=== PATIENT | male | born 1970 | race Caucasian/White ===

== ENCOUNTER 2016-11-10 08:18 | Outpatient (CLI) | payer OTHER | END 2016-11-10 08:19 | disposition home or self-care (01) | DX: E11.8 Type 2 diabetes mellitus with unspecified complications (principal) ==

== ENCOUNTER 2016-12-08 10:11 | Outpatient (CLI) | payer OTHER | END 2016-12-08 10:12 | disposition home or self-care (01) | DX: Z79.01 Long term (current) use of anticoagulants (principal) ==

== ENCOUNTER 2016-12-21 16:09 | Outpatient (CLI) | payer OTHER | END 2016-12-21 16:10 | disposition home or self-care (01) | DX: Z79.01 Long term (current) use of anticoagulants (principal) ==

== ENCOUNTER 2017-01-05 13:41 | Outpatient (CLI) | payer OTHER | END 2017-01-05 13:42 | disposition home or self-care (01) | DX: Z79.01 Long term (current) use of anticoagulants (principal) ==

== ENCOUNTER 2017-01-10 07:54 | Outpatient (CLI) | payer OTHER | END 2017-01-10 07:55 | disposition home or self-care (01) | DX: E11.9 Type 2 diabetes mellitus without complications (principal); I10 Essential (primary) hypertension; E78.1 Pure hyperglyceridemia ==

== ENCOUNTER 2017-01-26 13:45 | Outpatient (CLI) | payer OTHER | END 2017-01-26 13:46 | disposition home or self-care (01) | DX: Z79.01 Long term (current) use of anticoagulants (principal) ==

== ENCOUNTER 2017-02-09 13:34 | Outpatient (CLI) | payer OTHER | END 2017-02-09 13:35 | disposition home or self-care (01) | LOC: LAB.F 13:34 | PROVIDERS: ATTEND Family Medicine | DX: Z79.01 Long term (current) use of anticoagulants (principal) | CPT/HCPCS: 85610 ==

== ENCOUNTER 2017-02-16 09:22 | Outpatient (CLI) | payer OTHER | END 2017-02-16 09:23 | disposition home or self-care (01) | DX: Z79.01 Long term (current) use of anticoagulants (principal) ==

== ENCOUNTER 2017-03-16 09:43 | Outpatient (CLI) | payer OTHER | END 2017-03-16 09:44 | disposition home or self-care (01) | LOC: LAB 09:43 | PROVIDERS: ATTEND Family Medicine | DX: Z79.01 Long term (current) use of anticoagulants (principal) | CPT/HCPCS: 85610 ==

== ENCOUNTER 2017-03-25 19:29 | Emergency (ER) | payer OTHER ==
--- NOTE | 2017-03-25 20:24 | ED Physician Documentation ---
PD HPI DYSPNEA - Stated complaint Stated Complaint: SOA - Chief complaint Chief Complaint: Resp - History obtained from History obtained from: Patient - History of Present Illness Timing - onset: How many days ago (few) Timing - details: Gradual onset Worsened by: Coughing Associated symptoms: Cough. No: Chest pain / discomfort Recently seen: Clinic (5 days ago.) - Additional information Additional information: The patient is a 36-year-old male with history of prosthetic aortic valve replacement, on warfarin, who presents with mild dyspnea, which he describes as not really short of breath, but "hard to take a deep breath." He reports cough with scant sputum production. 5 days ago he was diagnosed with sinus infection and was prescribed cefuroxime. His sinus congestion has improved since that time. He has been taking a decongestant medication. He denies fever, headache, sore throat, or chest pain. He has noticed an abnormal heart rhythm, which he has experienced occasionally in the past. Review of Systems Constitutional: denies: Fever Ears: denies: Tinnitus/ringing Nose: denies: Congestion Throat: denies: Sore throat Cardiac: reports: Palpitations. denies: Chest pain / pressure Respiratory: reports: Cough GI: denies: Abdominal Pain, Nausea, Vomiting : denies: Dysuria Skin: denies: Rash Musculoskeletal: denies: Back pain, Extremity pain Neurologic: denies: Focal weakness, Numbness, Headache PD PAST MEDICAL HISTORY - Past Medical History Past Medical History: Yes Cardiovascular: Arrhythmia, Valve disorder Respiratory: Pneumonia Neuro: None Endocrine/Autoimmune: Type 2 diabetes GI: None : Kidney stones HEENT: None Psych: None Musculoskeletal: None Derm: None Other Past Medical History: possible mrsa - Past Surgical History Past Surgical History: Yes General: Cholecystectomy Cardiovascular: Valve replacement, Other - Present Medications Home Medications: Ambulatory Orders Medication Instructions Recorded Confirmed Aspirin [Aspir 81] 81 mg PO DAILY 09/06/14 03/25/17 Lisinopril 5 mg PO DAILY 09/06/14 03/25/17 Metoprolol Tartrate 12.5 mg PO BID 09/06/14 03/25/17 Warfarin Sodium [Coumadin] 7.5 mg PO DAILY 09/06/14 03/25/17 Warfarin Sodium [Coumadin] 10 mg PO DAILY 09/06/14 03/25/17 Cefuroxime Axetil [Ceftin] 250 mg BID 03/25/17 03/25/17 Loratadine/Pseudoephedrine 1 tab BID 03/25/17 03/25/17 [Claritin-D 12 Hour Tablet] Metformin HCl 1,000 mg PO BID 03/25/17 03/25/17 - Allergies Allergies/Adverse Reactions: Allergies Allergy/AdvReac Type Severity Reaction Status Date / Time morphine Allergy Unknown Verified 09/06/14 15:46 - Social History Does the pt smoke?: No Smoking Status: Never smoker Does the pt drink ETOH?: No Does the pt have substance abuse?: No - Immunizations Immunizations are current?: Yes - POLST Patient has POLST: No PD ED PE NORMAL - Vitals Vital signs reviewed: Yes (hypertensive) - General General: Alert and oriented X 3 - HEENT HEENT: Atraumatic, Ears normal, Pharynx benign - Neck Neck: No adenopathy, No JVD - Cardiac Cardiac: Other (Bigeminy on the classroom monitor. Mechanical click on auscultation of the heart.) - Respiratory Respiratory: No respiratory distress, Clear bilaterally - Abdomen Abdomen: Soft, Non tender - Derm Derm: No rash - Extremities Extremities: No edema, No calf tenderness / cord - Neuro Neuro: Alert and oriented X 3, No motor deficit, Normal speech Results - Vitals Vitals: Oxygen O2 Source Room air - EKG (time done) 19:46 Rate: Rate (enter#) (94) Rhythm: NSR (with bigeminy) [place]: Normal Intervals: Normal [place] QRS: LVH Ischemia: Normal ST segments Other comments: Other comments (RSR' in V2, consistent with RVH.) - Labs Labs: Laboratory Tests 03/25/17 03/25/17 03/25/17 19:50 19:50 19:50 WBC 7.5 RBC 5.36 Hgb 14.5 Hct 44.7 MCV 83.3 MCH 27.1 MCHC 32.5 RDW 14.8 Plt Count 242 MPV 7.8 Neut # 3.9 Lymph # 2.7 [place] # 0.5 Eos # 0.4 Baso # 0.1 Absolute Nucleated RBC 0.01 Nucleated RBCs 0.1 PT 22.2 H INR 2.0 H Sodium 137 Potassium 3.5 Chloride 102 Carbon Dioxide 27 Anion Gap 8.0 BUN 20 Creatinine 1.0 Estimated GFR (MDRD) 80 L Glucose 92 Calcium 9.5 Total Bilirubin 0.2 AST 19 ALT 18 Alkaline Phosphatase 59 Total Protein 7.9 Albumin 4.4 Globulin 3.5 Albumin/Globulin Ratio 1.3 Lipase 18 L - Rads (name of study) 2-view chest x-ray Radiology: Prelim report reviewed, EMP read contemporaneously, See rad report ( No acute cardiopulmonary abnormality.) PD MEDICAL DECISION MAKING - ED course Complexity details: reviewed old records, reviewed results, re-evaluated patient , considered differential, d/w patient, d/w family, d/w medical consultant ED course: The patient presents with palpitations, and his classroom monitor reveals bigeminy. For the past 5 days he has been taking cefuroxime for sinus infection , and has also been taking a decongestant. He is status post aortic valve replacement and has had dysrhythmias in the past for which he is treated with metoprolol and lisinopril. I suspect the decongestant has prompted or at least been a contributing factor to his current bigeminy. He is not experiencing chest pain or hypotension. His CBC and chemistry panel are normal, and his INR is in the therapeutic range at 2.0. I discussed his condition with the branch associate teller on-call for Dr. Mendoza, his branch associate teller. He agrees that no further treatment, including no change in his beta omer, should be instituted at this time. I discussed with the patient and his the likely relationship between the decongestant and his current rhythm disturbance, the advice of the branch associate teller, as well as potentially worrisome signs or symptoms that should prompt reevaluation in the emergency department. Departure - Departure Disposition: 01 Home, Self Care Clinical Impression: Bigeminy, H/O aortic valve replacement Upper respiratory tract infection Qualifiers: URI type: unspecified viral URI Qualified Code(s): J06.9 - Acute upper respiratory infection, unspecified Condition: Stable Instructions: ED URI Viral, ED Dysrhythmia Unspecified Follow-Up: Erasmo Mittal MD [Provider Admit Priv/Credential] - Comments: Continue metoprolol as previously prescribed. Discontinue decongestant. Follow up with your primary physician within one to 2 weeks. Call to schedule an appointment. Return to the emergency department if you develop increasing difficulty breathing, worsening cardiac dysrhythmia, or otherwise worsening symptoms. Discharge Date/Time: 03/25/17 21:35
[2017-03-25 20:33] LABS: BASOPHILS # (AUTO) 0.1 10^3/uL (0.0-0.1); BASOPHILS % (AUTO) 0.7 %; EOSINOPHILS # (AUTO) 0.4 10^3/uL (0.0-0.7); EOSINOPHILS % (AUTO) 5.7 %; HCT - HEMATOCRIT 44.7 % (42.0-52.0); HGB - HEMOGLOBIN 14.5 g/dL (14.0-18.0); LYMPHOCYTES # (AUTO) 2.7 10^3/uL (1.5-3.5); LYMPHOCYTES % (AUTO) 36.2 %; MEAN CORPUSCULAR HEMOGLOBIN 27.1 pg (27.0-31.0); MEAN CORPUSCULAR HGB CONC 32.5 g/dL (32.0-36.0); MEAN CORPUSCULAR VOLUME 83.3 fL (80.0-94.0); MEAN PLATELET VOLUME 7.8 fL (7.4-11.4); MONOCYTES # (AUTO) 0.5 10^3/uL (0.0-1.0); MONOCYTES % (AUTO) 6.2 %; NEUTROPHILS # (AUTO) 3.9 10^3/uL (1.5-6.6); NEUTROPHILS % (AUTO) 51.2 %; NUCLEATED RED BLOOD CELLS AUTO 0.1 /100WBC; RED BLOOD COUNT 5.36 10^6/uL (4.70-6.10); RED CELL DISTRIBUTION WIDTH 14.8 % (12.0-15.0); UNCORRECTED WHITE BLOOD COUNT 7.5 x10^3/uL; WHITE BLOOD COUNT 7.5 x10^3/uL (4.8-10.8)
[2017-03-25 20:39] LABS: PT - PROTHROMBIN TIME 22.2 secs (9.9-12.6)
[2017-03-25 20:43] LABS: ALBUMIN/GLOBULIN RATIO 1.3 (1.0-2.2); BILIRUBIN,TOTAL 0.2 mg/dL (0.2-1.0); CALCIUM 9.5 mg/dL (8.5-10.3); POTASSIUM 3.5 mmol/L (3.5-5.0); TOTAL PROTEIN 7.9 g/dL (6.7-8.2)
--- NOTE | 2017-03-25 20:46 | XRAY Preliminary Report ---
Exam: XR Chest 2 View PA/LAT IMPRESSION: No acute cardiopulmonary abnormality. [facility] SITE ID: [id number]
--- NOTE | 2017-03-25 20:49 | XRAY Report ---
EXAM: CHEST RADIOGRAPHY EXAM DATE: 03/25/2017 08:40 PM. CLINICAL HISTORY: Cough, with dyspnea. COMPARISON: 09/24/2012. TECHNIQUE: 2 views. FINDINGS: Lungs/Pleura: Normal volumes. No focal consolidation or evidence of edema. No pleural effusion or pne umothorax. Mediastinum: Postoperative changes of interval cardiac valve surgery. Heart size is normal. The aorta is mildly tortuous, as before. Other: Mid thoracic spine DISH. IMPRESSION: No acute cardiopulmonary abnormality. [facility] Referring Provider Line: [phone] SITE ID: [id number]
[2017-03-25 21:48] VITALS: BP 155/96
== END 2017-03-25 21:35 | disposition home or self-care (01) ==
LOC: ED 19:29
DX: J06.9 Acute upper respiratory infection, unspecified (principal); R00.8 Other abnormalities of heart beat; E11.9 Type 2 diabetes mellitus without complications; Z95.2 Presence of prosthetic heart valve; Z79.01 Long term (current) use of anticoagulants; Z79.82 Long term (current) use of aspirin
CPT/HCPCS: 36415; 71020; 80053; 83690; 85025; 85610; 93005; 99284; 99285

== ENCOUNTER 2017-04-11 07:43 | Outpatient (CLI) | payer OTHER ==
[2017-04-11 12:05] LABS: CREATININE 0.9 mg/dL (0.6-1.2); POTASSIUM 3.9 mmol/L (3.5-5.0)
[2017-04-11 12:30] LABS: HEMOGLOBIN A1C 0.58 g/dL
== END 2017-04-11 07:44 | disposition home or self-care (01) ==
LOC: LAB.F 07:43
PROVIDERS: ATTEND Nurse Practitioner Family
DX: E11.9 Type 2 diabetes mellitus without complications (principal)
CPT/HCPCS: 36415; 80048; 83036

== ENCOUNTER 2017-04-13 09:31 | Outpatient (CLI) | payer OTHER | END 2017-04-13 09:32 | disposition home or self-care (01) | LOC: LAB.F 09:31 | PROVIDERS: ATTEND Internal Medicine | DX: Z79.01 Long term (current) use of anticoagulants (principal) | CPT/HCPCS: 85610 ==

== ENCOUNTER 2017-05-25 14:49 | Outpatient (CLI) | payer OTHER | END 2017-05-25 14:50 | disposition home or self-care (01) | LOC: LAB.F 14:49 | PROVIDERS: ATTEND Internal Medicine | DX: Z79.01 Long term (current) use of anticoagulants (principal) | CPT/HCPCS: 85610 ==

== ENCOUNTER 2017-06-08 10:28 | Outpatient (CLI) | payer OTHER | END 2017-06-08 10:29 | disposition home or self-care (01) | LOC: LAB.F 10:28 | PROVIDERS: ATTEND Internal Medicine | DX: Z79.01 Long term (current) use of anticoagulants (principal) | CPT/HCPCS: 85610 ==

== ENCOUNTER 2017-07-05 10:52 | Outpatient (CLI) | payer OTHER | END 2017-07-05 10:53 | disposition home or self-care (01) | LOC: LAB.F 10:52 | PROVIDERS: ATTEND Internal Medicine | DX: Z79.01 Long term (current) use of anticoagulants (principal); Z51.81 Encounter for therapeutic drug level monitoring | CPT/HCPCS: 36415; 82607; 85610 ==

== ENCOUNTER 2017-08-10 13:40 | Outpatient (CLI) | payer OTHER | END 2017-08-10 13:41 | disposition home or self-care (01) | LOC: LAB.F 13:40 | PROVIDERS: ATTEND Physician Assistant Medical | DX: Z79.01 Long term (current) use of anticoagulants (principal) | CPT/HCPCS: 85610 ==

== ENCOUNTER → 2017-08-22 | Outpatient (CLI) | payer OTHER | LOC: LAB.F 08:00 | PROVIDERS: ATTEND Physician Assistant Medical | DX: Z79.01 Long term (current) use of anticoagulants (principal) | CPT/HCPCS: 85610 ==

== ENCOUNTER 2017-09-07 08:00 | Outpatient (CLI) | payer OTHER | END 2017-09-07 08:01 | disposition home or self-care (01) | LOC: LAB.F 08:00 | PROVIDERS: ATTEND Physician Assistant Medical | DX: Z79.01 Long term (current) use of anticoagulants (principal) | CPT/HCPCS: 85610 ==

== ENCOUNTER 2017-10-05 10:52 | Outpatient (CLI) | payer OTHER | END 2017-10-05 10:53 | disposition home or self-care (01) | LOC: LAB.F 10:52 | PROVIDERS: ATTEND Physician Assistant Medical | DX: Z79.01 Long term (current) use of anticoagulants (principal) | CPT/HCPCS: 85610 ==

== ENCOUNTER 2017-10-26 13:21 | Outpatient (CLI) | payer OTHER | END 2017-10-26 13:22 | disposition home or self-care (01) | LOC: LAB.F 13:21 | PROVIDERS: ATTEND Physician Assistant Medical | DX: Z79.01 Long term (current) use of anticoagulants (principal) | CPT/HCPCS: 85610 ==

== ENCOUNTER 2017-11-23 08:00 | Outpatient (CLI) | payer OTHER ==
[2017-11-23 17:50] LABS: BASOPHILS # (AUTO) 0.1 10^3/uL (0.0-0.1); BASOPHILS % (AUTO) 0.9 %; EOSINOPHILS # (AUTO) 0.3 10^3/uL (0.0-0.7); EOSINOPHILS % (AUTO) 3.6 %; HGB - HEMOGLOBIN 14.8 g/dL (14.0-18.0); LYMPHOCYTES # (AUTO) 0.9 10^3/uL (1.5-3.5); MEAN CORPUSCULAR HEMOGLOBIN 28.1 pg (27.0-31.0); MEAN CORPUSCULAR HGB CONC 33.3 g/dL (32.0-36.0); MEAN CORPUSCULAR VOLUME 84.2 fL (80.0-94.0); MEAN PLATELET VOLUME 8.2 fL (7.4-11.4); MONOCYTES # (AUTO) 0.4 10^3/uL (0.0-1.0); MONOCYTES % (AUTO) 5.3 %; NEUTROPHILS # (AUTO) 5.3 10^3/uL (1.5-6.6); NEUTROPHILS % (AUTO) 77.2 %; PLT - PLATELET COUNT 212 10^3/uL (130-450); RED BLOOD COUNT 5.27 10^6/uL (4.70-6.10); RED CELL DISTRIBUTION WIDTH 15.8 % (12.0-15.0); WHITE BLOOD COUNT 6.9 x10^3/uL (4.8-10.8)
[2017-11-23 18:08] LABS: ALBUMIN 4.4 g/dL (3.2-5.5); ALBUMIN/GLOBULIN RATIO 1.2 (1.0-2.2); ALKALINE PHOSPHATASE 49 IU/L (42-121); ALT ALANINE AMINOTRANSFERASE 15 IU/L (10-60); AST ASPARTATE AMINOTRANSFERASE 20 IU/L (10-42); BILIRUBIN,TOTAL 1.2 mg/dL (0.2-1.0); BUN - BLOOD UREA NITROGEN 20 mg/dL (6-20); CALCIUM 9.1 mg/dL (8.5-10.3); CARBON DIOXIDE - CO2 25 mmol/L (21-32); CHLORIDE 104 mmol/L (101-111); CHOL/HDL RATIO 6.3 (<5.0); CHOLESTEROL 208 mg/dL; CREATININE 0.9 mg/dL (0.6-1.2); CREATININE,URINE 91.3 mg/dL; GFR - MDRD 90 (>89); GLUCOSE 84 mg/dL (70-100); HDL CHOLESTEROL 33 mg/dL; LDL CHOLESTEROL,CALCULATED 154 mg/dL; LDL/HDL RATIO 4.7 (<3.6); MICROALBUM/CREATININE RATIO,UR 157.7 ug/mg (<30.0); MICROALBUMIN,URINE 14.4 mg/dL (0-300.0); SODIUM 138 mmol/L (135-145); VLDL CHOLESTEROL 21 mg/dL
[2017-11-23 18:09] LABS: HB2 TOTAL 16.2 g/dL; HEMOGLOBIN A1C 0.56 g/dL; HEMOGLOBIN A1C % 5.3 % (4.6-6.2)
== END 2017-11-23 08:01 | disposition home or self-care (01) ==
LOC: LAB 08:00
PROVIDERS: ATTEND Family Medicine
DX: I10 Essential (primary) hypertension (principal); E78.1 Pure hyperglyceridemia; E11.9 Type 2 diabetes mellitus without complications
CPT/HCPCS: 36415; 80053; 80061; 82043; 82570; 83036; 83721; 84443; 85025

== ENCOUNTER 2017-12-14 10:32 | Outpatient (CLI) | payer OTHER | END 2017-12-14 10:33 | disposition home or self-care (01) | LOC: LAB.F 10:32 | PROVIDERS: ATTEND Physician Assistant Medical | DX: Z79.01 Long term (current) use of anticoagulants (principal) | CPT/HCPCS: 85610 ==

== ENCOUNTER 2018-01-18 08:22 | Outpatient (CLI) | payer OTHER | END 2018-01-18 08:23 | disposition home or self-care (01) | LOC: LAB.F 08:22 | PROVIDERS: ATTEND Physician Assistant Medical | DX: Z79.01 Long term (current) use of anticoagulants (principal) | CPT/HCPCS: 85610 ==

== ENCOUNTER 2018-01-25 09:25 | Outpatient (CLI) | payer OTHER | END 2018-01-25 09:26 | disposition home or self-care (01) | LOC: LAB.F 09:25 | PROVIDERS: ATTEND Physician Assistant Medical | DX: Z79.01 Long term (current) use of anticoagulants (principal) | CPT/HCPCS: 85610 ==

== ENCOUNTER 2018-02-20 02:40 | Emergency (ER) | payer OTHER ==
--- NOTE | 2018-02-20 03:03 | ED Physician Documentation ---
PD HPI DYSPNEA - Stated complaint Stated Complaint: RT LUNG PAIN - Chief complaint Chief Complaint: Abd Pain - History obtained from History obtained from: Patient - History of Present Illness Timing - onset: Today Timing - onset during: Sleep Timing - details: Abrupt onset, Now resolved Worsened by: Laying flat, Coughing Associated symptoms: No: Fever, Cough Similar symptoms before: No diagnosis Recently seen: Not recently seen - Additional information Additional information: Patient is a 47 year old male presenting to the emergency department for possible aspiration. patient states that he has had about 9-10 episodes of this throughout his life. patient states that he feels like some food went down his right side. patient states that he was wheezing but it has improved. Review of Systems Ten Systems: 10 systems reviewed and negative Respiratory: reports: Cough, Wheezing PD PAST MEDICAL HISTORY - Past Medical History Past Medical History: Yes Cardiovascular: Arrhythmia, Valve disorder Respiratory: Pneumonia Endocrine/Autoimmune: Type 2 diabetes GI: None : Kidney stones HEENT: None Psych: None Musculoskeletal: None Derm: None - Past Surgical History Past Surgical History: Yes General: Cholecystectomy Cardiovascular: Valve replacement, Other - Present Medications Home Medications: Ambulatory Orders Medication Instructions Recorded Confirmed Aspirin [Aspir 81] 81 mg PO DAILY 09/06/14 03/25/17 Lisinopril 40 mg PO DAILY 09/06/14 03/25/17 Metoprolol Tartrate 12.5 mg PO BID 09/06/14 03/25/17 Warfarin Sodium [Coumadin] 10 mg PO DAILY 09/06/14 03/25/17 Warfarin Sodium [Coumadin] 15 mg PO DAILY 09/06/14 03/25/17 Metformin HCl 1,000 mg PO BID 03/25/17 03/25/17 - Allergies Allergies/Adverse Reactions: Allergies Allergy/AdvReac Type Severity Reaction Status Date / Time morphine Allergy Unknown Verified 02/20/18 02:47 - Social History Does the pt smoke?: No Smoking Status: Never smoker Does the pt drink ETOH?: No Does the pt have substance abuse?: No - Immunizations Immunizations are current?: Yes - POLST Patient has POLST: No PD ED PE NORMAL - Vitals Vital signs reviewed: Yes - General General: Alert and oriented X 3, No acute distress - HEENT HEENT: Atraumatic - Neck Neck: No JVD - Cardiac Cardiac: RRR, No murmur - Respiratory Respiratory: No respiratory distress, Clear bilaterally - Abdomen Abdomen: Non distended - Derm Derm: Normal color, No rash - Extremities Extremities: No deformity - Neuro Neuro: Alert and oriented X 3 Eye Opening: Spontaneous Motor: Obeys Commands Verbal: Oriented GCS Score: 15 Results - Vitals Vitals: Vital Signs - 24 hr 02/20/18 02:43 Temperature 36.3 C L Heart Rate 82 Respiratory 18 Rate Blood Pressure 173/110 H O2 Saturation 98 Oxygen O2 Source Room air - Rads (name of study) chest x-ray Radiology: Final report received (no acute findings) PD MEDICAL DECISION MAKING - ED course Complexity details: reviewed old records, reviewed results, re-evaluated patient , considered differential, d/w patient ED course: Patient was seen and examined at bedside. Patient was in no distress and was not hypoxic. patient was sent for imaging. When patient returned the results were reviewed. there was no acute abnormality. No antibiotics or steroids were indicated at this time. Patient was hypertensive here but he states that he takes his blood pressure every day and it is normally around 130/80. No additional agent was indicated at this time. Patient required no further work up and was stable for discharge with outpatient follow up. Departure - Departure Disposition: 01 Home, Self Care Clinical Impression: Aspiration into airway Condition: Good Instructions: Dysphagia Aspiration Follow-Up: Lindsay Muro PA-C [Primary Care Provider] - Within 3 Days Comments: Your chest x-ray today showed no acute changes. It normally takes a few days to see any post aspiration changes. You should return to the emergency department for fevers, chills, shortness of breath, new, worsening or uncontrollable symptoms.
--- NOTE | 2018-02-20 03:13 | XRAY Report ---
EXAM: CHEST RADIOGRAPHY EXAM DATE: 02/20/2018 03:01 AM. CLINICAL HISTORY: Aspiration. COMPARISON: 03/25/2017. TECHNIQUE: 2 views. FINDINGS: Lungs/Pleura: No alveolar consolidation or pleural effusion seen. No pneumothorax. Mediastinum: Heart size is normal. Valve prosthesis. Tortuous aorta. Other: Median sternotomy. IMPRESSION: 1. Postoperative changes. No acute abnormality seen. [facility] Referring Provider Line: [phone] SITE ID: [id number]
--- NOTE | 2018-02-20 03:13 | XRAY Preliminary Report ---
Exam: XR CHEST 2 VIEW X-RAY IMPRESSION: 1. Postoperative changes. No acute abnormality seen. [facility] SITE ID: [id number]
[2018-02-20 03:29] VITALS: BP 135/94
== END 2018-02-20 03:28 | disposition home or self-care (01) ==
LOC: ED 02:40
DX: R06.89 Other abnormalities of breathing (principal); E11.9 Type 2 diabetes mellitus without complications; Z79.84 Long term (current) use of oral hypoglycemic drugs; Z79.01 Long term (current) use of anticoagulants; Z95.2 Presence of prosthetic heart valve; Z79.82 Long term (current) use of aspirin
CPT/HCPCS: 71046; 99283

== ENCOUNTER 2018-03-08 09:31 | Outpatient (CLI) | payer OTHER | END 2018-03-08 09:32 | disposition home or self-care (01) | LOC: LAB.F 09:31 | PROVIDERS: ATTEND Physician Assistant Medical | DX: Z79.01 Long term (current) use of anticoagulants (principal) | CPT/HCPCS: 85610 ==

== ENCOUNTER 2018-04-05 10:07 | Outpatient (CLI) | payer OTHER | END 2018-04-05 10:08 | disposition home or self-care (01) | LOC: LAB.F 10:07 | PROVIDERS: ATTEND Physician Assistant Medical | DX: Z79.01 Long term (current) use of anticoagulants (principal) | CPT/HCPCS: 85610 ==

== ENCOUNTER 2018-04-21 00:49 | Outpatient (CLI) | payer OTHER | END 2018-04-21 00:50 | disposition critical access hospital (66) | LOC: EMS 00:49 | PROVIDERS: ATTEND Surgery | DX: R06.02 Shortness of breath (principal) | CPT/HCPCS: A0425; A0427 ==

== ENCOUNTER 2018-04-21 01:20 | Emergency (ER) | payer OTHER ==
--- NOTE | 2018-04-21 01:36 | ED Physician Documentation ---
History of Present Illness - Stated complaint Stated Complaint: SOA - Chief complaint Chief Complaint: Resp - History obtained from History obtained from: Patient - Additonal information Additional information: 47-year-old male presents to the emergency department for evaluation of dyspnea which occurred while at rest. The patient experienced a sudden onset of shortness of breath which he described as having difficulty getting air in. This was associated with generalized shakiness mostly in the upper extremities. The patient describes it as a anxiety throughout his torso and into his extremities. The patient denies any chest pain, abdominal pain or peripheral edema. The patient denies recent dyspnea on exertion, URI symptoms, fever or cough. The patient currently has no active symptoms and the symptoms spontaneously resolved. Currently, the patient feels well and has no acute complaints. Review of Systems Constitutional: denies: Fever, Chills Eyes: denies: Discharge Ears: denies: Ear pain Nose: denies: Congestion Throat: denies: Sore throat Cardiac: denies: Chest pain / pressure, Palpitations, Pedal edema Respiratory: reports: Dyspnea GI: denies: Abdominal Pain : denies: Hematuria Skin: denies: Laceration (s) Musculoskeletal: denies: Neck pain Neurologic: denies: Generalized weakness Immunocompromised: denies: Chemotherapy PD PAST MEDICAL HISTORY - Past Medical History Cardiovascular: Arrhythmia, Valve disorder Respiratory: Pneumonia Endocrine/Autoimmune: Type 2 diabetes GI: None : Kidney stones HEENT: None Psych: None Musculoskeletal: None Derm: None - Past Surgical History Past Surgical History: Yes General: Cholecystectomy Cardiovascular: Valve replacement, Other - Present Medications Home Medications: Ambulatory Orders Medication Instructions Recorded Confirmed Aspirin [Aspir 81] 81 mg PO DAILY 09/06/14 03/25/17 Lisinopril 40 mg PO DAILY 09/06/14 03/25/17 Metoprolol Tartrate 12.5 mg PO BID 09/06/14 03/25/17 Warfarin Sodium [Coumadin] 10 mg PO DAILY 09/06/14 03/25/17 Warfarin Sodium [Coumadin] 15 mg PO DAILY 09/06/14 03/25/17 Metformin HCl 1,000 mg PO BID 03/25/17 03/25/17 - Allergies Allergies/Adverse Reactions: Allergies Allergy/AdvReac Type Severity Reaction Status Date / Time morphine Allergy Unknown Verified 02/20/18 02:47 - Social History Does the pt smoke?: No Smoking Status: Never smoker Does the pt drink ETOH?: No Does the pt have substance abuse?: No - Immunizations Immunizations are current?: Yes - POLST Patient has POLST: No PD ED PE NORMAL - General General: Alert and oriented X 3, No acute distress - HEENT HEENT: Atraumatic, PERRL, EOMI, Ears normal, Moist mucous membranes - Neck Neck: Supple, no meningeal sign - Cardiac Cardiac: RRR, Strong equal pulses - Respiratory Respiratory: No respiratory distress, Clear bilaterally - Abdomen Abdomen: Soft, Non tender, Non distended - Derm Derm: Normal color - Extremities Extremities: No deformity, Normal ROM s pain, No edema - Neuro Neuro: Alert and oriented X 3, Normal speech - Psych Psych: Normal mood Results - Vitals Vitals: Vital Signs - 24 hr 04/21/18 04/21/18 01:24 03:29 Temperature 36.6 C Heart Rate 63 84 Respiratory 18 18 Rate Blood Pressure 165/99 H 138/89 H O2 Saturation 100 94 Oxygen O2 Source Room air - EKG (time done) 01:37 Rate: Rate (enter#) Rhythm: NSR Intervals: Normal [place], QRS normal QRS: Normal Ischemia: Non specific changes Other comments: Other comments Compare to prior EKG: Unchanged from prior EKG - Labs Labs: Laboratory Tests 04/21/18 04/21/18 04/21/18 01:43 01:43 01:43 WBC 6.9 RBC 4.92 Hgb 14.3 Hct 42.3 MCV 86.0 MCH 29.0 MCHC 33.7 RDW 15.2 H Plt Count 213 MPV 7.6 Neut # (Auto) 4.2 Lymph # (Auto) 1.7 [place] # (Auto) 0.3 Eos # (Auto) 0.6 Baso # (Auto) 0.1 Absolute Nucleated RBC 0.00 Nucleated RBC % 0.0 PT 29.1 H INR 2.7 H APTT 38.4 H D-Dimer Sodium 137 Potassium 3.6 Chloride 105 Carbon Dioxide 21 Anion Gap 11.0 BUN 25 H Creatinine 0.8 Estimated GFR (MDRD) 103 Glucose 93 Calcium 9.2 Total Bilirubin 0.6 AST 23 ALT 16 Alkaline Phosphatase 43 Troponin I B-Natriuretic Peptide Total Protein 7.4 Albumin 4.2 Globulin 3.2 Albumin/Globulin Ratio 1.3 Lipase 30 0704/21/18 04/21/18 01:43 01:43 01:43 WBC RBC Hgb Hct MCV MCH MCHC RDW Plt Count MPV Neut # (Auto) Lymph # (Auto) [place] # (Auto) Eos # (Auto) Baso # (Auto) Absolute Nucleated RBC Nucleated RBC % PT INR APTT D-Dimer < 200.0 L Sodium Potassium Chloride Carbon Dioxide Anion Gap BUN Creatinine Estimated GFR (MDRD) Glucose Calcium Total Bilirubin AST ALT Alkaline Phosphatase Troponin I < 0.04 B-Natriuretic Peptide 61 Total Protein Albumin Globulin Albumin/Globulin Ratio Lipase 04/21/18 03:44 WBC RBC Hgb Hct MCV MCH MCHC RDW Plt Count MPV Neut # (Auto) Lymph # (Auto) [place] # (Auto) Eos # (Auto) Baso # (Auto) Absolute Nucleated RBC Nucleated RBC % PT INR APTT D-Dimer Sodium Potassium Chloride Carbon Dioxide Anion Gap BUN Creatinine Estimated GFR (MDRD) Glucose Calcium Total Bilirubin AST ALT Alkaline Phosphatase Troponin I < 0.04 B-Natriuretic Peptide Total Protein Albumin Globulin Albumin/Globulin Ratio Lipase - Rads (name of study) Chest x-ray Radiology: Final report received, See rad report PD MEDICAL DECISION MAKING - ED course ED course: The patient's workup does not reveal an acute etiology that would necessitate admission to the hospital or acute consultation. The patient has had no symptoms since arriving in the emergency department. On reevaluation the patient is resting comfortably. I discussed with the patient and his the findings. The patient appears appropriate for discharge and further workup as an outpatient. I discussed warning signs and recommended returning to the emergency department immediately for worsening or any concerns. - Sepsis Event Vital Signs: Vital Signs - 24 hr 04/21/18 04/21/18 01:24 03:29 Temperature 36.6 C Heart Rate 63 84 Respiratory 18 18 Rate Blood Pressure 165/99 H 138/89 H O2 Saturation 100 94 Oxygen O2 Source Room air Departure - Departure Disposition: 01 Home, Self Care Clinical Impression: Dyspnea Qualifiers: Dyspnea type: unspecified Qualified Code(s): R06.00 - Dyspnea, unspecified Condition: Good Instructions: ED Dyspnea Shortness of Breath Follow-Up: Lindsay Muro PA-C [Primary Care Provider] - Within 3 Days Comments: Please return to the emergency department for worsening symptoms or any concerns
[2018-04-21 01:51] LABS: BASOPHILS # (AUTO) 0.1 10^3/uL (0.0-0.1); EOSINOPHILS # (AUTO) 0.6 10^3/uL (0.0-0.7); HGB - HEMOGLOBIN 14.3 g/dL (14.0-18.0); LYMPHOCYTES # (AUTO) 1.7 10^3/uL (1.5-3.5); LYMPHOCYTES % (AUTO) 24.6 %; MEAN CORPUSCULAR HGB CONC 33.7 g/dL (32.0-36.0); MEAN PLATELET VOLUME 7.6 fL (7.4-11.4); MONOCYTES # (AUTO) 0.3 10^3/uL (0.0-1.0); MONOCYTES % (AUTO) 4.1 %; NEUTROPHILS # (AUTO) 4.2 10^3/uL (1.5-6.6); NEUTROPHILS % (AUTO) 61.3 %; PLT - PLATELET COUNT 213 10^3/uL (130-450); RED BLOOD COUNT 4.92 10^6/uL (4.70-6.10); RED CELL DISTRIBUTION WIDTH 15.2 % (12.0-15.0); WHITE BLOOD COUNT 6.9 x10^3/uL (4.8-10.8)
--- NOTE | 2018-04-21 01:53 | XRAY Report ---
Procedure Date: 04/21/2018 Accession Number: [id number] / [id number] Procedure: XR - Chest 2 View X-Ray CPT Code: 29645 FULL RESULT: EXAM: CHEST RADIOGRAPHY EXAM DATE: 04/21/2018 01:40 AM. CLINICAL HISTORY: Chest pain. COMPARISON: CHEST 2 VIEW 02/20/2018. TECHNIQUE: 2 views. FINDINGS: Lungs/Pleura: No alveolar consolidation or pleural effusion seen. No pneumothorax. Mediastinum: Heart size is normal. Cardiac valve prosthesis. Tortuous aorta. Other: Median sternotomy. IMPRESSION: 1. Postoperative changes. 2. No acute abnormality and no significant change. [facility]
[2018-04-21 01:55] LABS: INR 2.7 (0.8-1.2); PT - PROTHROMBIN TIME 29.1 secs (9.9-12.6)
[2018-04-21 02:01] LABS: ALBUMIN 4.2 g/dL (3.2-5.5); ALBUMIN/GLOBULIN RATIO 1.3 (1.0-2.2); BILIRUBIN,TOTAL 0.6 mg/dL (0.2-1.0); CALCIUM 9.2 mg/dL (8.5-10.3); CREATININE 0.8 mg/dL (0.6-1.2); TOTAL PROTEIN 7.4 g/dL (6.7-8.2)
[2018-04-21 04:35] VITALS: BP 135/86
== END 2018-04-21 04:34 | disposition home or self-care (01) ==
LOC: EDUNIT# → SUPCPDRO 01:20 → ED 01:20
DX: R06.00 Dyspnea, unspecified (principal)
CPT/HCPCS: 36415; 71046; 80053; 83690; 83880; 84484; 85025; 85379; 85610; 85730; 93005; 99283; 99284

== ENCOUNTER 2018-05-31 13:41 | Outpatient (CLI) | payer OTHER | END 2018-05-31 13:42 | disposition home or self-care (01) | LOC: LAB.F 13:41 | PROVIDERS: ATTEND Physician Assistant Medical | DX: Z79.01 Long term (current) use of anticoagulants (principal) | CPT/HCPCS: 85610 ==

== ENCOUNTER 2018-07-12 07:44 | Outpatient (CLI) | payer OTHER | END 2018-07-12 07:45 | disposition home or self-care (01) | LOC: LAB.F 07:44 | PROVIDERS: ATTEND Physician Assistant Medical | DX: Z79.01 Long term (current) use of anticoagulants (principal) | CPT/HCPCS: 85610 ==

== ENCOUNTER 2018-08-16 09:44 | Outpatient (CLI) | payer OTHER | END 2018-08-16 09:45 | disposition home or self-care (01) | LOC: LAB.F 09:44 | PROVIDERS: ATTEND Physician Assistant Medical | DX: Z79.01 Long term (current) use of anticoagulants (principal) | CPT/HCPCS: 85610 ==

== ENCOUNTER 2018-08-30 09:29 | Outpatient (CLI) | payer OTHER | END 2018-08-30 09:30 | disposition home or self-care (01) | LOC: LAB.F 09:29 | PROVIDERS: ATTEND Physician Assistant Medical | DX: Z79.01 Long term (current) use of anticoagulants (principal) | CPT/HCPCS: 85610 ==

== ENCOUNTER 2018-09-06 11:07 | Outpatient (CLI) | payer OTHER | END 2018-09-06 11:08 | disposition home or self-care (01) | LOC: LAB.F 11:07 | PROVIDERS: ATTEND Physician Assistant Medical | DX: Z79.01 Long term (current) use of anticoagulants (principal) | CPT/HCPCS: 85610 ==

== ENCOUNTER 2018-10-11 13:52 | Outpatient (CLI) | payer OTHER | END 2018-10-11 13:53 | disposition home or self-care (01) | LOC: LAB.F 13:52 | PROVIDERS: ATTEND Physician Assistant Medical | DX: Z79.01 Long term (current) use of anticoagulants (principal) | CPT/HCPCS: 85610 ==

== ENCOUNTER 2018-10-18 11:04 | Outpatient (CLI) | payer OTHER | END 2018-10-18 11:05 | disposition home or self-care (01) | LOC: LAB.F 11:04 | PROVIDERS: ATTEND Physician Assistant Medical | DX: Z79.01 Long term (current) use of anticoagulants (principal) | CPT/HCPCS: 85610 ==

== ENCOUNTER 2018-11-01 07:17 | Outpatient (CLI) | payer OTHER ==
[2018-11-01 12:54] LABS: BASOPHILS # (AUTO) 0.1 10^3/uL (0.0-0.1); EOSINOPHILS # (AUTO) 0.4 10^3/uL (0.0-0.7); EOSINOPHILS % (AUTO) 7.4 %; LYMPHOCYTES # (AUTO) 1.2 10^3/uL (1.5-3.5); LYMPHOCYTES % (AUTO) 22.7 %; MEAN CORPUSCULAR HEMOGLOBIN 28.7 pg (27.0-31.0); MEAN CORPUSCULAR HGB CONC 33.3 g/dL (32.0-36.0); MEAN CORPUSCULAR VOLUME 86.1 fL (80.0-94.0); MEAN PLATELET VOLUME 8.2 fL (7.4-11.4); MONOCYTES # (AUTO) 0.3 10^3/uL (0.0-1.0); MONOCYTES % (AUTO) 6.7 %; NEUTROPHILS # (AUTO) 3.2 10^3/uL (1.5-6.6); NEUTROPHILS % (AUTO) 62.2 %; PLT - PLATELET COUNT 198 10^3/uL (130-450); RED BLOOD COUNT 5.25 10^6/uL (4.70-6.10); RED CELL DISTRIBUTION WIDTH 15.2 % (12.0-15.0); WHITE BLOOD COUNT 5.2 x10^3/uL (4.8-10.8)
[2018-11-01 13:28] LABS: ALBUMIN 3.9 g/dL (3.2-5.5); ALBUMIN/GLOBULIN RATIO 1.1 (1.0-2.2); ALKALINE PHOSPHATASE 40 IU/L (42-121); ALT ALANINE AMINOTRANSFERASE 17 IU/L (10-60); AST ASPARTATE AMINOTRANSFERASE 23 IU/L (10-42); BILIRUBIN,TOTAL 1.1 mg/dL (0.2-1.0); BUN - BLOOD UREA NITROGEN 18 mg/dL (6-20); CALCIUM 9.1 mg/dL (8.5-10.3); CARBON DIOXIDE - CO2 28 mmol/L (21-32); CHLORIDE 103 mmol/L (101-111); CHOL/HDL RATIO 5.4 (<5.0); CHOLESTEROL 196 mg/dL; CREATININE 0.9 mg/dL (0.6-1.2); GFR - MDRD 89 (>89); GLUCOSE 94 mg/dL (70-100); HDL CHOLESTEROL 36 mg/dL; LDL CHOLESTEROL,CALCULATED 141 mg/dL; LDL/HDL RATIO 3.9 (<3.6); SODIUM 136 mmol/L (135-145); TOTAL PROTEIN 7.5 g/dL (6.7-8.2); VLDL CHOLESTEROL 19 mg/dL
[2018-11-01 14:43] LABS: HB2 TOTAL 16.1 g/dL; HEMOGLOBIN A1C 0.54 g/dL; HEMOGLOBIN A1C % 5.2 % (4.6-6.2)
== END 2018-11-01 07:18 | disposition home or self-care (01) ==
LOC: LAB.F 07:17
PROVIDERS: ATTEND Registered Nurse
DX: E11.9 Type 2 diabetes mellitus without complications (principal)
CPT/HCPCS: 36415; 80053; 80061; 82043; 83036; 83721; 84443; 85025

== ENCOUNTER 2018-12-06 13:01 | Outpatient (CLI) | payer OTHER | END 2018-12-06 13:02 | disposition home or self-care (01) | LOC: LAB.F 13:01 | PROVIDERS: ATTEND Physician Assistant Medical | DX: Z79.01 Long term (current) use of anticoagulants (principal) | CPT/HCPCS: 85610 ==

== ENCOUNTER 2019-01-10 14:23 | Outpatient (CLI) | payer OTHER | END 2019-01-10 14:24 | disposition home or self-care (01) | LOC: LAB.F 14:23 | PROVIDERS: ATTEND Physician Assistant Medical | DX: Z79.01 Long term (current) use of anticoagulants (principal) | CPT/HCPCS: 85610 ==

== ENCOUNTER 2019-02-14 10:31 | Outpatient (CLI) | payer OTHER | END 2019-02-14 10:32 | disposition home or self-care (01) | LOC: LAB.F 10:31 | PROVIDERS: ATTEND Physician Assistant Medical | DX: Z51.81 Encounter for therapeutic drug level monitoring (principal); Z79.01 Long term (current) use of anticoagulants | CPT/HCPCS: 85610 ==

== ENCOUNTER 2019-03-26 14:49 | Emergency (ER) | payer OTHER ==
[2019-03-26 15:48] LABS: BILIRUBIN,URINE NEGATIVE (NEGATIVE); GLUCOSE, URINE (UA) NEGATIVE (NEGATIVE); KETONES,URINE (UA) NEGATIVE (NEGATIVE); LEUKOCYTE ESTERASE, URINE SMALL (NEGATIVE); NITRITE,URINE POSITIVE (NEGATIVE); OCCULT BLOOD,URINE TRACE-LYSE (NEGATIVE); PH,URINE 7.5 PH (5.0-7.5); PROTEIN,URINE TRACE mg/dL (NEGATIVE); UROBILINOGEN,URINE 0.2 (NORMAL) E.U./dL (NORMAL)
[2019-03-26 15:55] LABS: CLARITY,URINE CLOUDY (CLEAR)
[2019-03-26 15:57] LABS: BACTERIA,URINE Few /HPF (None Seen); SQUAMOUS EPITHELIAL CELL,UR RARE Squamous (<= Few); WBC CLUMPS,URINE PRESENT
[2019-03-26] MEDS ORDERED: PROPARACAINE 0.5% OPHTH DROPS 15 ML EACHEYE STA (15:59)
--- NOTE | 2019-03-26 16:03 | ED Physician Documentation ---
History of Present Illness - Stated complaint Stated Complaint: EYE PX/MALE - Chief complaint Chief Complaint: General - History obtained from History obtained from: Patient, Family - History of Present Illness Timing: How many weeks ago (2) Pain level max: 4 Pain level now: 3 Improved by: closing eyes Worsened by: opening eyes, bright lights - Additonal information Additional information: 48 year old male with B eye pain for the past 2 weeks, states feels like allergies. Yesterday became light sensitive, better today. Also has dysuria and concerned about a UTI. Wears glasses but not contacts. No trauma. 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 Review of Systems Constitutional: denies: Fever, Chills, Sweats Eyes: reports: Photophobia, Irritation. denies: Loss of vision, Decreased vision, Discharge Ears: denies: Ear pain Nose: denies: Rhinorrhea / runny nose, Reviewed and negative Cardiac: denies: Chest pain / pressure Respiratory: denies: Cough GI: denies: Nausea, Vomiting, Diarrhea : reports: Dysuria, Frequency, Hesitancy. denies: Now EGA Skin: denies: Rash Musculoskeletal: denies: Neck pain, Back pain Neurologic: denies: Headache PD PAST MEDICAL HISTORY - Past Medical History Past Medical History: Yes Cardiovascular: Hypertension, Angina, Arrhythmia, Valve disorder Respiratory: Pneumonia, Sleep apnea Neuro: None Endocrine/Autoimmune: Type 2 diabetes GI: None : Kidney stones HEENT: None Psych: None Musculoskeletal: None Derm: Eczema - Past Surgical History Past Surgical History: Yes General: Cholecystectomy, Appendectomy, Hiatal hernia repair Cardiovascular: Valve replacement, Other - Present Medications Home Medications: Ambulatory Orders Medication Instructions Recorded Confirmed Aspirin [Aspir 81] 81 mg PO DAILY 09/06/14 03/26/19 Lisinopril 40 mg PO DAILY 09/06/14 03/26/19 Metoprolol Tartrate 12.5 mg PO BID 09/06/14 03/26/19 Warfarin Sodium [Coumadin] 10 mg PO DAILY 09/06/14 03/26/19 Warfarin Sodium [Coumadin] 12.5 mg PO DAILY 09/06/14 03/26/19 Metformin HCl 1,000 mg PO BID 03/25/17 03/26/19 Cephalexin [Keflex] 500 mg PO Q6H #28 capsule 03/26/19 Ketotifen Fumarate [Zaditor] 1 drops EACHEYE Q8H PRN #1 bottle 03/26/19 Polymyxin B/Trimeth Ophth Drop 1 drops EACHEYE Q3H 7 Days #1 03/26/19 [Polytrim Ophth Drops] bottle amLODIPine [Norvasc] 5 mg PO DAILY 03/26/19 03/26/19 - Allergies Allergies/Adverse Reactions: Allergies Allergy/AdvReac Type Severity Reaction Status Date / Time morphine Allergy Unknown Verified 03/26/19 15:00 - Social History Does the pt smoke?: No Smoking Status: Former smoker Does the pt drink ETOH?: Yes ETOH Use: Beer Does the pt have substance abuse?: No - Immunizations Immunizations are current?: Yes - POLST Patient has POLST: No PD ED PE NORMAL - Vitals Vital signs reviewed: Yes - General General: Alert and oriented X 3, No acute distress, Well developed/nourished - HEENT HEENT: PERRL, Moist mucous membranes, Other (L eye small abrasion to the inferior medial aspect of the cornea. No FB in OU. eyelids everted. both eyes with ciliary flush and conjunctival injection.) - Neck Neck: Supple, no meningeal sign - Cardiac Cardiac: RRR, Strong equal pulses - Respiratory Respiratory: No respiratory distress, Clear bilaterally - Abdomen Abdomen: Soft, Non tender, Non distended - Back Back: No CVA TTP - Derm Derm: Warm and dry - Neuro Neuro: Alert and oriented X 3 - Psych Psych: Normal mood, Normal affect Results - Vitals Vitals: Vital Signs - 24 hr 03/26/19 03/26/19 14:57 16:55 Temperature 37.1 C Heart Rate 71 74 Respiratory 14 16 Rate Blood Pressure 161/106 H 138/107 H O2 Saturation 97 98 Oxygen O2 Source Room air - Labs Labs: Laboratory Tests 03/26/19 03/26/19 15:20 16:25 Whole Blood INR 2.2 H Urine Color YELLOW Urine Clarity CLOUDY Urine pH 7.5 Ur Specific [place] 1.010 Urine Protein TRACE Urine Glucose (UA) NEGATIVE Urine Ketones NEGATIVE Urine Occult Blood TRACE-LYSE Urine Nitrite POSITIVE H Urine Bilirubin NEGATIVE Urine Urobilinogen 0.2 (NORMAL) Ur Leukocyte Esterase SMALL H Urine RBC 6-10 H Urine WBC >25 H Urine WBC Clumps PRESENT Ur Squamous Epith Cells RARE Squamous Urine Bacteria Few Ur Microscopic Review INDICATED Urine Culture Comments INDICATED PD MEDICAL DECISION MAKING - ED course Complexity details: considered differential, d/w patient ED course: Patient with a UTI and a left-sided corneal abrasion. Possible allergic conjunctivitis as well? Does not wear contacts. No ulcers visible. No cell and flare seen. Does have ciliary flush. Will place on Zaditor, Polytrim ophthalmic and Keflex. Given Rocephin here. Patient counseled regarding signs and symptoms for which I believe and urgent re-evaluation would be necessary. Patient with good understanding of and agreement to plan and is comfortable going home at this time This document was made in part using voice recognition software. While efforts are made to proofread this document, sound alike and grammatical errors may occur. Departure - Departure Disposition: 01 Home, Self Care Clinical Impression: Corneal abrasion Qualifiers: Encounter type: initial encounter Laterality: left Qualified Code(s): S05.02XA - Injury of conjunctiva and corneal abrasion without foreign body, left eye, initial encounter UTI (urinary tract infection) Qualifiers: Urinary tract infection type: acute cystitis Hematuria presence: without h ematuria Qualified Code(s): N30.00 - Acute cystitis without hematuria Condition: Good Instructions: ED Eye Injury Corneal Abrasion, ED UTI Cystitis Male Follow-Up: Franc Goff MD [Provider Admit Priv/Credential] - Tomorrow your,doctor in 1 week [Other] Prescriptions: Cephalexin [Keflex] 500 mg PO Q6H #28 capsule Ketotifen Fumarate [Zaditor] 1 drops EACHEYE Q8H PRN #1 bottle PRN Reason: itching Polymyxin B/Trimeth Ophth Drop [Polytrim Ophth Drops] 1 drops EACHEYE Q3H 7 Days #1 bottle Comments: Take all antibiotics until gone. Return if you worsen. Follow-up with your doctor for further evaluation and care. Use the eyedrops as prescribed. Apply the eyedrops at least 10 minutes apart within the same eye Discharge Date/Time: 03/26/19 16:56
[2019-03-26] MEDS ORDERED: LIDOCAINE 1% 2 ML VIAL MC ONE (16:18)
[2019-03-26] MEDS ORDERED: cefTRIAXone 1 GM VIAL IM STA (16:18)
[2019-03-26 16:56] VITALS: BP 138/107
== END 2019-03-26 16:56 | disposition home or self-care (01) ==
LOC: ED 14:49
DX: S05.02XA Injury of conjunctiva and corneal abrasion without foreign body, left eye, initial encounter (principal); N30.00 Acute cystitis without hematuria; I10 Essential (primary) hypertension; E11.9 Type 2 diabetes mellitus without complications; Z79.84 Long term (current) use of oral hypoglycemic drugs; Z87.891 Personal history of nicotine dependence; Z79.01 Long term (current) use of anticoagulants
CPT/HCPCS: 81001; 85610; 87077; 87086; 87181; 96372; 99283; J3490; 81003

== ENCOUNTER 2019-06-06 13:02 | Outpatient (CLI) | payer OTHER ==
[2019-06-06 17:23] LABS: CALCIUM 9.2 mg/dL (8.5-10.3); CREATININE 0.9 mg/dL (0.6-1.2)
[2019-06-06 17:28] LABS: HEMOGLOBIN A1C 0.55 g/dL; HEMOGLOBIN A1C % 5.5 % (4.6-6.2)
== END 2019-06-06 13:03 | disposition home or self-care (01) ==
LOC: LAB.S 13:02
PROVIDERS: ATTEND Physician Assistant Medical
DX: E11.9 Type 2 diabetes mellitus without complications (principal); Z79.01 Long term (current) use of anticoagulants
CPT/HCPCS: 36415; 80048; 83036; 85610

== ENCOUNTER 2019-07-04 14:16 | Outpatient (CLI) | payer OTHER | END 2019-07-04 14:17 | disposition home or self-care (01) | LOC: LAB.S 14:16 | PROVIDERS: ATTEND Physician Assistant Medical | DX: Z51.81 Encounter for therapeutic drug level monitoring (principal); Z79.01 Long term (current) use of anticoagulants | CPT/HCPCS: 85610 ==

== ENCOUNTER 2019-07-10 01:42 | Emergency (ER) | payer OTHER ==
[2019-07-10] MEDS ORDERED: SODIUM CHLORIDE 0.9% 1,000 ML IV ONE (02:13)
[2019-07-10] MEDS ORDERED: HYDROmorphone 1 MG/ML CARPUJECT IVP STA ×2 (02:13→04:40)
[2019-07-10] MEDS ORDERED: ONDANSETRON 4 MG/2 ML VIAL IVP STA (02:13)
--- NOTE | 2019-07-10 02:14 | ED Physician Documentation ---
PD HPI ABD PAIN - Stated complaint Stated Complaint: ADB PX R SIDE BACK PX - Chief complaint Chief Complaint: Abd Pain - History obtained from History obtained from: Patient - History of Present Illness Timing - onset: Today Timing - duration: Hours (3) Timing - details: Gradual onset Pain level now: 2 Quality: Pain Location: RLQ Radiation: Lower back Associated symptoms: Nausea. No: Fever, Vomiting, Dysuria, Hematuria, Dizzy Similar symptoms before: Diagnosis Recently seen: Not recently seen - Additional information Additional information: This is a 49-year-old man with a long-standing history of kidney stones presents with complaints of pain in his right lower abdomen that radiates straight through to his back. It started approximately 2 hours prior to presentation and feels identical to when he had stones in the past. After the pain started he was up urinating about every 30 minutes. He took ibuprofen around 2 hours ago and the pain is now down to a 2 out of 10. He has not seen blood in the urine. His last stone was in July 2016 and they dissolved it with potassium citrate. He had lithotripsy in 2008 and he has had one surgically removed as well when they took his appendix out. He was seeing a urologist in [place] but decided he was not getting much benefit out of that so quit seeing them. He normally does not come to the emergency department when he passes a stone because he can control the pain with ibuprofen but tonight was exceptional. He says he is passed over 30 stones in the past. He was feeling nauseous but no vomiting. Denies any fever. He was little short of breath but he relates that to the pain. Patient is status post cholecystectomy, appendectomy. He also has had an aortic valve replacement with mechanical valve and he is a diabetic. He is allergic to morphine but is tolerated Dilaudid in the past. 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 Review of Systems Constitutional: denies: Fever Nose: denies: Congestion Throat: denies: Sore throat Cardiac: denies: Chest pain / pressure, Palpitations Respiratory: reports: Dyspnea. denies: Cough GI: reports: Abdominal Pain, Nausea. denies: Vomiting : reports: Frequency. denies: Hematuria Skin: denies: Rash Musculoskeletal: reports: Back pain PD PAST MEDICAL HISTORY - Past Medical History Cardiovascular: Hypertension, Angina, Arrhythmia, Valve disorder Respiratory: Pneumonia, Sleep apnea Neuro: None Endocrine/Autoimmune: Type 2 diabetes GI: None : Kidney stones HEENT: None Psych: None Musculoskeletal: None Derm: Eczema - Past Surgical History Past Surgical History: Yes General: Cholecystectomy, Appendectomy, Hiatal hernia repair /[employer]: Other (Kidney 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) Cardiovascular: Valve replacement, Other - Present Medications Home Medications: Ambulatory Orders Medication Instructions Recorded Confirmed Aspirin [Aspir 81] 81 mg PO DAILY 09/06/14 03/26/19 Lisinopril 40 mg PO DAILY 09/06/14 03/26/19 Metoprolol Tartrate 12.5 mg PO BID 09/06/14 03/26/19 Warfarin Sodium [Coumadin] 10 mg PO DAILY 09/06/14 03/26/19 Warfarin Sodium [Coumadin] 12.5 mg PO DAILY 09/06/14 03/26/19 Metformin HCl 1,000 mg PO BID 03/25/17 03/26/19 Cephalexin [Keflex] 500 mg PO Q6H #28 capsule 03/26/19 Ketotifen Fumarate [Zaditor] 1 drops EACHEYE Q8H PRN #1 bottle 03/26/19 Polymyxin B/Trimeth Ophth Drop 1 drops EACHEYE Q3H 7 Days #1 03/26/19 [Polytrim Ophth Drops] bottle amLODIPine [Norvasc] 5 mg PO DAILY 03/26/19 03/26/19 Ondansetron Odt [Zofran] 4 mg TL Q6H PRN #10 tablet 07/10/19 Oxycodone HCl/Acetaminophen 1 - 2 each PO Q6H PRN #14 tablet 07/10/19 [Percocet 5-325 mg Tablet] Tamsulosin [Flomax] 0.4 mg PO DAILY #10 capsule 07/10/19 - Allergies Allergies/Adverse Reactions: Allergies Allergy/AdvReac Type Severity Reaction Status Date / Time morphine Allergy Unknown Verified 03/26/19 15:00 - Social History Does the pt smoke?: No Smoking Status: Former smoker Does the pt drink ETOH?: Yes Does the pt have substance abuse?: No - Immunizations Immunizations are current?: Yes - POLST Patient has POLST: No PD ED PE NORMAL - Vitals Vital signs reviewed: Yes - General General: Alert and oriented X 3, No acute distress, Well developed/nourished - HEENT HEENT: Atraumatic, PERRL, Moist mucous membranes, Other (No scleral icterus) - Neck Neck: No adenopathy - Cardiac Cardiac: RRR, Other (3/6 systolic murmur heard throughout the precordium with a mechanical valve click) - Respiratory Respiratory: No respiratory distress, Clear bilaterally - Abdomen Abdomen: Normal bowel sounds, Soft, Non tender, Non distended - Back Back: Other (Right costovertebral angle tenderness) - Derm Derm: Normal color, Warm and dry, No rash - Extremities Extremities: No edema - Neuro Neuro: Alert and oriented X 3, Other (No gross neurological deficits) - Psych Psych: Normal mood, Normal affect Results - Vitals Vitals: Vital Signs - 24 hr 07/10/19 07/10/19 07/10/19 01:46 02:13 04:51 Temperature 37.1 C Heart Rate 64 68 64 Respiratory 17 17 17 Rate Blood Pressure 156/106 H 130/72 144/103 H O2 Saturation 99 97 100 Oxygen O2 Source Room air - Labs Labs: Laboratory Tests 07/10/19 07/10/19 07/10/19 01:57 02:26 02:26 WBC 8.0 RBC 5.27 Hgb 15.4 Hct 46.6 MCV 88.4 MCH 29.2 MCHC 33.0 RDW 14.6 Plt Count 308 MPV 11.3 Neut # (Auto) 6.2 Lymph # (Auto) 1.1 L [place] # (Auto) 0.4 Eos # (Auto) 0.2 Baso # (Auto) 0.1 Absolute Nucleated RBC 0.00 Nucleated RBC % 0.0 PT 26.4 H INR 2.4 H Sodium 137 Potassium 3.8 Chloride 102 Carbon Dioxide 25 Anion Gap 10.0 BUN 25 H Creatinine 0.9 Estimated GFR (MDRD) 89 Glucose 108 H Calcium 9.2 Total Bilirubin 0.8 AST 22 ALT 19 Alkaline Phosphatase 40 L Total Protein 7.5 Albumin 4.1 Globulin 3.4 Albumin/Globulin Ratio 1.2 Lipase 30 Urine Color Urine Clarity Urine pH Ur Specific [place] Urine Protein Urine Glucose (UA) Urine Ketones Urine Occult Blood Urine Nitrite Urine Bilirubin Urine Urobilinogen Ur Leukocyte Esterase Urine RBC Urine WBC Ur Squamous Epith Cells Urine Bacteria Ur Microscopic Review Urine Culture Comments 07/10/19 02:35 WBC RBC Hgb Hct MCV MCH MCHC RDW Plt Count MPV Neut # (Auto) Lymph # (Auto) [place] # (Auto) Eos # (Auto) Baso # (Auto) Absolute Nucleated RBC Nucleated RBC % PT INR Sodium Potassium Chloride Carbon Dioxide Anion Gap BUN Creatinine Estimated GFR (MDRD) Glucose Calcium Total Bilirubin AST ALT Alkaline Phosphatase Total Protein Albumin Globulin Albumin/Globulin Ratio Lipase Urine Color YELLOW Urine Clarity CLEAR Urine pH 6.0 Ur Specific [place] 1.015 Urine Protein NEGATIVE Urine Glucose (UA) NEGATIVE Urine Ketones NEGATIVE Urine Occult Blood LARGE H Urine Nitrite NEGATIVE Urine Bilirubin NEGATIVE Urine Urobilinogen 0.2 (NORMAL) Ur Leukocyte Esterase NEGATIVE Urine RBC 11-25 H Urine WBC 0-3 Ur Squamous Epith Cells FEW Squamous Urine Bacteria None Seen Ur Microscopic Review INDICATED Urine Culture Comments NOT INDICATED PD MEDICAL DECISION MAKING - ED course Complexity details: reviewed results, re-evaluated patient, d/w patient ED course: Patient did have pretty good relief with the Dilaudid 1 mg and Zofran 4 mg. He was rating his pain about a 2 out of 10 but says it was significantly better. He still had a little discomfort with palpation. BUN is 25 but his creatinine is 0.9. Normal white count. Urine had a lot of blood in it. CT scan showed a 5 mm stone in the right distal ureter with hydronephrosis. Plan to consult the [place] [facility] on [facility] which she is seen in the past to ensure follow-up. Spoke to Dr. Wilson certified lactation counselor for Urology and he stated the patient could be managed outpatient with follow-up. Departure - Departure Disposition: 01 Home, Self Care Clinical Impression: Renal colic Condition: Good Instructions: ED Stone Renal W Colic Follow-Up: Lindsay Muro PA-C [Primary Care Provider] - [place] [Other] Prescriptions: Ondansetron Odt [Zofran] 4 mg TL Q6H PRN #10 tablet PRN Reason: Nausea / Vomiting Oxycodone HCl/Acetaminophen [Percocet 5-325 mg Tablet] 1 - 2 each PO Q6H PRN #14 tablet PRN Reason: pain Tamsulosin [Flomax] 0.4 mg PO DAILY #10 capsule Comments: Take the Flomax daily. Continue to use your ibuprofen for pain. Make sure that you are drinking at least ten 8 ounce glasses of water a day. Take the Percocet if needed for pain. Use Zofran if needed for nausea or vomiting. Contact the [place] [facility] for follow-up. They have indicated that they will contact you for an appointment as well. Return if the pain is not being controlled at home with the pain medications, you are vomiting and cannot keep anything down, develop fever or unable to urinate. Discharge Date/Time: 07/10/19 04:54
[2019-07-10 02:19] LABS: BASOPHILS # (AUTO) 0.1 10^3/uL (0.0-0.1); BASOPHILS % (AUTO) 0.9 %; EOSINOPHILS # (AUTO) 0.2 10^3/uL (0.0-0.7); HGB - HEMOGLOBIN 15.4 g/dL (14.0-18.0); LYMPHOCYTES # (AUTO) 1.1 10^3/uL (1.5-3.5); LYMPHOCYTES % (AUTO) 13.4 %; MEAN CORPUSCULAR HEMOGLOBIN 29.2 pg (27.0-31.0); MEAN CORPUSCULAR VOLUME 88.4 fL (80.0-94.0); MEAN PLATELET VOLUME 11.3 fL (7.4-11.4); MONOCYTES # (AUTO) 0.4 10^3/uL (0.0-1.0); MONOCYTES % (AUTO) 5.5 %; NEUTROPHILS # (AUTO) 6.2 10^3/uL (1.5-6.6); NEUTROPHILS % (AUTO) 76.7 %; PLT - PLATELET COUNT 308 10^3/uL (130-450); RED BLOOD COUNT 5.27 10^6/uL (4.70-6.10); RED CELL DISTRIBUTION WIDTH 14.6 % (12.0-15.0)
[2019-07-10 02:35] LABS: INR 2.4 (0.8-1.2); PT - PROTHROMBIN TIME 26.4 secs (9.9-12.6)
[2019-07-10 02:41] LABS: BILIRUBIN,URINE NEGATIVE (NEGATIVE); GLUCOSE, URINE (UA) NEGATIVE (NEGATIVE); KETONES,URINE (UA) NEGATIVE (NEGATIVE); LEUKOCYTE ESTERASE, URINE NEGATIVE (NEGATIVE); NITRITE,URINE NEGATIVE (NEGATIVE); OCCULT BLOOD,URINE LARGE (NEGATIVE); PROTEIN,URINE NEGATIVE (NEGATIVE); UROBILINOGEN,URINE 0.2 (NORMAL) E.U./dL (NORMAL)
[2019-07-10 02:44] LABS: ALBUMIN 4.1 g/dL (3.2-5.5); ALBUMIN/GLOBULIN RATIO 1.2 (1.0-2.2); BILIRUBIN,TOTAL 0.8 mg/dL (0.2-1.0); CALCIUM 9.2 mg/dL (8.5-10.3); CREATININE 0.9 mg/dL (0.6-1.2); TOTAL PROTEIN 7.5 g/dL (6.7-8.2)
[2019-07-10 02:46] LABS: CLARITY,URINE CLEAR (CLEAR)
[2019-07-10 02:50] LABS: BACTERIA,URINE None Seen /HPF (None Seen); SQUAMOUS EPITHELIAL CELL,UR FEW Squamous (<= Few)
--- NOTE | 2019-07-10 04:04 | CT Report ---
Reason: R flank and abd pain, r/o stone Procedure Date: 07/10/2019 Accession Number: [id number] / [id number] Procedure: CT - Abdomen/Pelvis WO CPT Code: FULL RESULT: EXAM: CT ABDOMEN AND PELVIS (CT KUB) EXAM DATE: 07/10/2019 03:40 AM. CLINICAL HISTORY: R flank and abd pain, r/o stone. COMPARISONS: ABDOMEN/PELVIS W/O 07/05/2016 8:47 PM. TECHNIQUE: Routine axial helical CT imaging was performed through the abdomen and pelvis without IV contrast. Reconstructions: Coronal and sagittal. In accordance with CT protocol optimization, one or more of the following dose reduction techniques were utilized for this exam: automated exposure control, adjustment of mA and/or KV based on patient size, or use of iterative reconstructive technique. FINDINGS: Lung Bases: Unremarkable. Right Kidney/Ureter: Right hydronephrosis and hydroureter, with a 5 mm calculus in the distal right ureter, just above the ureterovesicular junction. 3 mm calculus in the right lower pole collecting system. Left Kidney/Ureter: No hydronephrosis. 2 mm calculus in the lower pole collecting system. Other Solid Organs: Noncontrast images of the solid organs are grossly unremarkable. Gallbladder/Bile Ducts: Cholecystectomy. Peritoneal Cavity: No free fluid, free air or shawn adenopathy. Bowel is grossly unremarkable. Pelvic Organs: No bladder stones or wall thickening. Noncontrast images of the visualized pelvic organs are unremarkable. Vasculature: Unremarkable. Other: None. IMPRESSION: 5 mm calculus in the distal right ureter, producing right hydronephrosis. Bilateral upper tract calculi. RADIA
[2019-07-10 04:53] VITALS: BP 144/103
== END 2019-07-10 04:54 | disposition home or self-care (01) ==
LOC: ED 01:42
DX: N13.2 Hydronephrosis with renal and ureteral calculous obstruction (principal); I10 Essential (primary) hypertension; E11.9 Type 2 diabetes mellitus without complications; Z79.84 Long term (current) use of oral hypoglycemic drugs; Z79.01 Long term (current) use of anticoagulants; Z95.2 Presence of prosthetic heart valve; Z90.49 Acquired absence of other specified parts of digestive tract; Z87.891 Personal history of nicotine dependence; Z79.82 Long term (current) use of aspirin; Z88.6 Allergy status to analgesic agent
CPT/HCPCS: 36415; 74176; 80053; 81001; 83690; 85025; 85610; 96361; 96374; 96376; 99284; J1170; 81003; 87086

== ENCOUNTER 2019-08-25 13:39 | Outpatient (CLI) | payer OTHER | END 2019-08-25 13:40 | disposition home or self-care (01) | LOC: LAB.S 13:39 | PROVIDERS: ATTEND Physician Assistant Medical | DX: Z79.01 Long term (current) use of anticoagulants (principal) | CPT/HCPCS: 85610 ==

== ENCOUNTER 2019-10-03 10:25 | Outpatient (CLI) | payer OTHER | END 2019-10-03 10:26 | disposition home or self-care (01) | LOC: LAB.S 10:25 | PROVIDERS: ATTEND Physician Assistant Medical | DX: Z79.01 Long term (current) use of anticoagulants (principal) | CPT/HCPCS: 85610 ==

== ENCOUNTER 2019-11-07 14:16 | Outpatient (CLI) | payer OTHER | END 2019-11-07 14:17 | disposition home or self-care (01) | LOC: LAB.S 14:16 | PROVIDERS: ATTEND Physician Assistant Medical | DX: Z79.01 Long term (current) use of anticoagulants (principal) | CPT/HCPCS: 85610 ==

== ENCOUNTER 2019-12-12 14:52 | Outpatient (CLI) | payer OTHER | END 2019-12-12 14:53 | disposition home or self-care (01) | LOC: LAB.S 14:52 | PROVIDERS: ATTEND Physician Assistant Medical | DX: Z79.01 Long term (current) use of anticoagulants (principal) | CPT/HCPCS: 85610 ==

== ENCOUNTER 2020-01-04 23:10 | Emergency (ER) | payer OTHER ==
[2020-01-04 23:48] LABS: BASOPHILS # (AUTO) 0.1 10^3/uL (0.0-0.1); BASOPHILS % (AUTO) 0.9 %; EOSINOPHILS # (AUTO) 0.4 10^3/uL (0.0-0.7); EOSINOPHILS % (AUTO) 6.3 %; HGB - HEMOGLOBIN 14.3 g/dL (14.0-18.0); LYMPHOCYTES # (AUTO) 2.3 10^3/uL (1.5-3.5); LYMPHOCYTES % (AUTO) 32.1 %; MEAN CORPUSCULAR HEMOGLOBIN 28.6 pg (27.0-31.0); MEAN CORPUSCULAR HGB CONC 32.4 g/dL (32.0-36.0); MEAN CORPUSCULAR VOLUME 88.2 fL (80.0-94.0); MEAN PLATELET VOLUME 9.8 fL (7.4-11.4); MONOCYTES # (AUTO) 0.4 10^3/uL (0.0-1.0); MONOCYTES % (AUTO) 5.8 %; NEUTROPHILS # (AUTO) 3.9 10^3/uL (1.5-6.6); NEUTROPHILS % (AUTO) 54.6 %; PLT - PLATELET COUNT 214 10^3/uL (130-450); RED CELL DISTRIBUTION WIDTH 14.6 % (12.0-15.0)
[2020-01-05] LABS: INR 2.8 (0.8-1.2); PT - PROTHROMBIN TIME 30.5 secs (9.9-12.6)
[2020-01-05 00:05] LABS: ALBUMIN 4.2 g/dL (3.2-5.5); ALBUMIN/GLOBULIN RATIO 1.3 (1.0-2.2); BILIRUBIN,TOTAL 0.9 mg/dL (0.2-1.0); CALCIUM 8.6 mg/dL (8.5-10.3); CREATININE 1.1 mg/dL (0.6-1.2); TOTAL PROTEIN 7.4 g/dL (6.7-8.2)
[2020-01-05 00:07] LABS: PARTIAL THROMBOPLASTIN TIME 45.8 secs (24.9-33.3)
--- NOTE | 2020-01-05 00:20 | XRAY Report ---
Reason: Skipping HR Procedure Date: 01/04/2020 Accession Number: [id number] / [id number] Procedure: XR - Chest 1 View X-Ray CPT Code: 59614 Final Report FULL RESULT: EXAM: CHEST RADIOGRAPHY EXAM DATE: 01/04/2020 11:47 PM. CLINICAL HISTORY: Irregular heartbeat COMPARISON: CHEST 2 VIEW 04/21/2018 1:29 AM. TECHNIQUE: 1 view. FINDINGS: Sternotomy wires and mediastinal surgical clips are again seen. The mediastinal and cardiac silhouettes are within normal limits. The lungs are free of focal consolidation. There is no pleural effusion or pneumothorax. No acute osseous abnormality is seen. IMPRESSION: No focal consolidation. RADIA
--- NOTE | 2020-01-05 00:34 | ED Physician Documentation ---
History of Present Illness - Stated complaint Stated Complaint: SKIPPING HEART - Chief complaint Chief Complaint: Cardiac - History obtained from History obtained from: Patient - Additonal information Additional information: Patient comes emergency department complaining of episodes of racing heart today. 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 Patient has seen cardiology for this since then and was told that it would most likely resolve itself in his 40s. Patient states that the episodes have gotten much much less frequent,And that generally, and he just waits the episode out. However, today he felt somewhat dizzy and had a little shortness of breath, and so he decided to come and get checked out. Patient denies any vomiting or recent changes to medications. He has not been working out or sweating heavily. He denies chest pain. He is not known to have coronary artery disease. He does have a history of a bicuspid aortic valve and aortic root dilatation, and had a valve replacement and aortic root grafting for these problems. He states that right now, he is feeling fine. Review of Systems Ten Systems: 10 systems reviewed and negative Constitutional: reports: Reviewed and negative Eyes: reports: Reviewed and negative Ears: reports: Reviewed and negative Nose: reports: Reviewed and negative Throat: reports: Reviewed and negative Cardiac: reports: Palpitations Respiratory: reports: Dyspnea GI: reports: Reviewed and negative : reports: Reviewed and negative Skin: reports: Reviewed and negative Musculoskeletal: reports: Reviewed and negative Neurologic: reports: Reviewed and negative Psychiatric: reports: Reviewed and negative Endocrine: reports: Reviewed and negative Immunocompromised: reports: Reviewed and negative PD PAST MEDICAL HISTORY - Past Medical History Cardiovascular: Hypertension, Angina, Arrhythmia, Valve disorder Respiratory: Pneumonia, Sleep apnea Neuro: None Endocrine/Autoimmune: Type 2 diabetes GI: None : Kidney stones HEENT: None Psych: None Musculoskeletal: None Derm: Eczema - Past Surgical History Past Surgical History: Yes General: Cholecystectomy, Appendectomy, Hiatal hernia 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) Cardiovascular: Valve replacement, Other - Present Medications Home Medications: Ambulatory Orders Medication Instructions Recorded Confirmed Aspirin [Aspir 81] 81 mg PO DAILY 09/06/14 01/04/20 Metoprolol Tartrate 12.5 mg PO BID 09/06/14 01/04/20 Warfarin Sodium [Coumadin] 10 mg PO DAILY 09/06/14 01/04/20 Warfarin Sodium [Coumadin] 12.5 mg PO DAILY 09/06/14 01/04/20 lisinopriL [Lisinopril] 40 mg PO DAILY 09/06/14 01/04/20 Metformin HCl 1,000 mg PO BID 03/25/17 01/04/20 amLODIPine [Norvasc] 5 mg PO DAILY 03/26/19 01/04/20 - Allergies Allergies/Adverse Reactions: Allergies Allergy/AdvReac Type Severity Reaction Status Date / Time morphine Allergy Unknown Verified 01/04/20 23:33 - Social History Does the pt smoke?: No Smoking Status: Former smoker Does the pt drink ETOH?: Yes Does the pt have substance abuse?: No - Immunizations Immunizations are current?: Yes - POLST Patient has POLST: No PD ED PE NORMAL - Vitals Vital signs reviewed: Yes - General General: Alert and oriented X 3, No acute distress - HEENT HEENT: Atraumatic, PERRL, EOMI, Moist mucous membranes - Neck Neck: Supple, no meningeal sign - Cardiac Cardiac: RRR, Strong equal pulses, Other (2 out of 6 systolic murmur, clicking valvular sounds.) - Respiratory Respiratory: No respiratory distress, Clear bilaterally - Abdomen Abdomen: Soft, Non tender, Non distended - Derm Derm: Warm and dry - Extremities Extremities: No deformity - Neuro Neuro: Alert and oriented X 3 - Psych Psych: Normal mood, Normal affect Results - Vitals Vitals: Oxygen O2 Source Room air - EKG (time done) 2321 Rate: Rate (enter#) (71) Rhythm: NSR [place]: Normal Intervals: Normal NC, Other (Right ventricular conduction delay) QRS: LVH Ischemia: Normal ST segments, Non specific changes Compare to prior EKG: Old EKG unavailable - Labs Labs: Laboratory Tests 01/04/20 01/04/20 01/04/20 23:18 23:18 23:18 WBC 7.0 RBC 5.00 Hgb 14.3 Hct 44.1 MCV 88.2 MCH 28.6 MCHC 32.4 RDW 14.6 Plt Count 214 MPV 9.8 Neut # (Auto) 3.9 Lymph # (Auto) 2.3 [place] # (Auto) 0.4 Eos # (Auto) 0.4 Baso # (Auto) 0.1 Absolute Nucleated RBC 0.00 Nucleated RBC % 0.0 PT INR APTT Sodium 134 L Potassium 3.6 Chloride 103 Carbon Dioxide 25 Anion Gap 6.0 BUN 22 H Creatinine 1.1 Estimated GFR (MDRD) 71 L Glucose 110 H Calcium 8.6 Total Bilirubin 0.9 AST 20 ALT 16 Alkaline Phosphatase 49 Troponin I High Sens 7.7 Total Protein 7.4 Albumin 4.2 Globulin 3.2 Albumin/Globulin Ratio 1.3 Lipase 24 01/04/20 23:18 WBC RBC Hgb Hct MCV MCH MCHC RDW Plt Count MPV Neut # (Auto) Lymph # (Auto) [place] # (Auto) Eos # (Auto) Baso # (Auto) Absolute Nucleated RBC Nucleated RBC % PT 30.5 H INR 2.8 H APTT 45.8 H Sodium Potassium Chloride Carbon Dioxide Anion Gap BUN Creatinine Estimated GFR (MDRD) Glucose Calcium Total Bilirubin AST ALT Alkaline Phosphatase Troponin I High Sens Total Protein Albumin Globulin Albumin/Globulin Ratio Lipase PD MEDICAL DECISION MAKING - ED course Complexity details: reviewed results, re-evaluated patient, considered differential, d/w patient ED course: The patient was very well-appearing in the emergency department and had a regular and normal heart rate and rhythm during his entire stay here. His EKG was unremarkable for concerning acute findings. 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 He stated that his cemetery warden has a standing order for it event monitoring for him, and that he could call her first thing in the morning to let her know what was going on and initiate monitoring if needed. At this point in time, I felt the patient was stable for discharge home. We have discussed home management of the symptoms, as well as the usual indications for return. Departure - Departure Disposition: 01 Home, Self Care Clinical Impression: Palpitations with regular cardiac rhythm Condition: Good Instructions: ED Palpitations Comments: Your labs, overall, looked quite good. Your sodium is just slightly below the low end of normal, which is 135, at 134. Most likely, this is not making a significant difference in your heart function; however, ideally in your condition, your electrolytes will be within normal limits. Your EKG and heart monitor readings look good, as well. 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 Event monitoring would almost certainly be helpful in this situation if your symptoms continue.If you develop chest pain or severe shortness of breath along with the palpitations, you should return to the emergency department immediately. Also, if your palpitations fail to resolve after a few minutes, and accompanied by dizziness, you should return to the emergency department, as well. Discharge Date/Time: 01/05/20 00:54
[2020-01-05 00:47] VITALS: BP 140/89
== END 2020-01-05 00:54 | disposition home or self-care (01) ==
LOC: ED 23:10
DX: R00.2 Palpitations (principal); I10 Essential (primary) hypertension; E11.9 Type 2 diabetes mellitus without complications; Z79.84 Long term (current) use of oral hypoglycemic drugs; Z87.891 Personal history of nicotine dependence
CPT/HCPCS: 36415; 71045; 80053; 83690; 84484; 85025; 85610; 85730; 93005; 99283; 99284

== ENCOUNTER 2020-01-23 11:41 | Outpatient (CLI) | payer OTHER ==
[2020-01-23 12:26] LABS: CALCIUM 9.1 mg/dL (8.5-10.3); CREATININE 0.8 mg/dL (0.6-1.2)
[2020-01-23 14:05] LABS: HB2 TOTAL 14.8 g/dL; HEMOGLOBIN A1C 0.55 g/dL; HEMOGLOBIN A1C % 5.6 % (4.6-6.2)
== END 2020-01-23 11:42 | disposition home or self-care (01) ==
LOC: LAB 11:41
PROVIDERS: ATTEND Physician Assistant Medical
DX: E11.9 Type 2 diabetes mellitus without complications (principal)
CPT/HCPCS: 36415; 80048; 83036

== ENCOUNTER 2020-05-19 20:02 | Outpatient (CLI) | payer OTHER | END 2020-05-19 23:59 | disposition short-term general hospital (02) | LOC: EMS 20:02 | PROVIDERS: ATTEND Surgery | DX: R20.0 Anesthesia of skin (principal); R68.84 Jaw pain; R42 Dizziness and giddiness | CPT/HCPCS: A0425; A0427 ==

== ENCOUNTER 2020-10-07 07:10 | Outpatient (CLI) | payer OTHER ==
[2020-10-07 15:57] LABS: BASOPHILS # (AUTO) 0.1 10^3/uL (0.0-0.1); BASOPHILS % (AUTO) 1.1 %; EOSINOPHILS # (AUTO) 0.4 10^3/uL (0.0-0.7); EOSINOPHILS % (AUTO) 6.6 %; HGB - HEMOGLOBIN 14.8 g/dL (14.0-18.0); LYMPHOCYTES # (AUTO) 1.4 10^3/uL (1.5-3.5); LYMPHOCYTES % (AUTO) 26.5 %; MEAN CORPUSCULAR HEMOGLOBIN 27.9 pg (27.0-31.0); MEAN CORPUSCULAR HGB CONC 31.7 g/dL (32.0-36.0); MEAN CORPUSCULAR VOLUME 87.9 fL (80.0-94.0); MEAN PLATELET VOLUME 9.5 fL (7.4-11.4); MONOCYTES # (AUTO) 0.4 10^3/uL (0.0-1.0); MONOCYTES % (AUTO) 7.6 %; NEUTROPHILS # (AUTO) 3.1 10^3/uL (1.5-6.6); NEUTROPHILS % (AUTO) 57.8 %; PLT - PLATELET COUNT 214 10^3/uL (130-450); RED BLOOD COUNT 5.31 10^6/uL (4.70-6.10); RED CELL DISTRIBUTION WIDTH 15.2 % (12.0-15.0); WHITE BLOOD COUNT 5.3 x10^3/uL (4.8-10.8)
[2020-10-07 16:13] LABS: ALBUMIN 4.3 g/dL (3.2-5.5); ALBUMIN/GLOBULIN RATIO 1.4 (1.0-2.2); ALKALINE PHOSPHATASE 51 IU/L (42-121); ALT ALANINE AMINOTRANSFERASE 19 IU/L (10-60); AST ASPARTATE AMINOTRANSFERASE 21 IU/L (10-42); BILIRUBIN,TOTAL 0.8 mg/dL (0.2-1.0); BUN - BLOOD UREA NITROGEN 23 mg/dL (6-20); CALCIUM 9.3 mg/dL (8.5-10.3); CARBON DIOXIDE - CO2 26 mmol/L (21-32); CHLORIDE 105 mmol/L (101-111); CHOL/HDL RATIO 5.9 (<5.0); CHOLESTEROL 183 mg/dL; CREATININE 0.9 mg/dL (0.6-1.2); GLUCOSE 97 mg/dL (70-100); HDL CHOLESTEROL 31 mg/dL; LDL CHOLESTEROL,CALCULATED 104 mg/dL; LDL/HDL RATIO 3.4 (<3.6); SODIUM 139 mmol/L (135-145); TOTAL PROTEIN 7.4 g/dL (6.7-8.2); VLDL CHOLESTEROL 48 mg/dL
[2020-10-07 19:14] LABS: HEMOGLOBIN A1c% 5.6 % (4.27-6.07)
== END 2020-10-07 07:11 | disposition home or self-care (01) ==
LOC: LAB.S 07:10
PROVIDERS: ATTEND Registered Nurse
DX: E78.2 Mixed hyperlipidemia (principal); E11.9 Type 2 diabetes mellitus without complications; E66.01 Morbid (severe) obesity due to excess calories; I10 Essential (primary) hypertension; Z95.2 Presence of prosthetic heart valve; Z79.01 Long term (current) use of anticoagulants
CPT/HCPCS: 36415; 80053; 80061; 83036; 83721; 84153; 84443; 85025

== ENCOUNTER 2021-02-20 13:36 | Outpatient (CLI) | payer OTHER | END 2021-02-20 13:37 | disposition home or self-care (01) | LOC: LAB.S 13:36 | PROVIDERS: ATTEND Registered Nurse | DX: Z95.2 Presence of prosthetic heart valve (principal); Z79.01 Long term (current) use of anticoagulants | CPT/HCPCS: 36416; 85610 ==

== ENCOUNTER 2021-04-29 12:55 | Outpatient (CLI) | payer OTHER ==
--- NOTE | 2021-04-29 16:58 | XRAY Report ---
PROCEDURE: Tib/Fib RT INDICATIONS: PAIN IN RIGHT LOWER LEG TECHNIQUE: 4 views of the tibia and fibula were acquired. COMPARISON: None FINDINGS: Bones: No fractures or dislocations. Nonspecific intraosseous cyst formation in fibular head is seen . Mild tricompartmental osteoarthritis in right knee joint is also noted. No suspicious bony lesions. Soft tissues: No suspicious soft tissue calcifications or masses. IMPRESSION: Right knee joint osteoarthritis. No lower leg fracture or dislocation. Nonspecific intraosseous cyst formation in fibular head. Reviewed by: Richard Desai MD on 04/29/2021 4:57 PM PDT Approved by: Richard Desai MD on 04/29/2021 4:57 PM PDT Station ID: [id number]
== END 2021-04-29 12:56 | disposition home or self-care (01) ==
LOC: DI.S 12:55
PROVIDERS: ATTEND Physician Assistant
DX: M17.11 Unilateral primary osteoarthritis, right knee (principal); R93.6 Abnormal findings on diagnostic imaging of limbs

== ENCOUNTER 2022-02-10 10:06 | Outpatient (CLI) | payer OTHER ==
[2022-02-10 14:37] LABS: EOSINOPHILS # (AUTO) 0.2 10^3/uL (0.0-0.7); EOSINOPHILS % (AUTO) 5.9 %; LYMPHOCYTES # (AUTO) 1.2 10^3/uL (1.5-3.5); LYMPHOCYTES % (AUTO) 28.5 %; MEAN CORPUSCULAR HEMOGLOBIN 28.6 pg (27.0-31.0); MEAN CORPUSCULAR HGB CONC 32.6 g/dL (32.0-36.0); MEAN CORPUSCULAR VOLUME 87.6 fL (80.0-94.0); MEAN PLATELET VOLUME 10.1 fL (7.4-11.4); MONOCYTES # (AUTO) 0.3 10^3/uL (0.0-1.0); MONOCYTES % (AUTO) 7.9 %; NEUTROPHILS # (AUTO) 2.3 10^3/uL (1.5-6.6); NEUTROPHILS % (AUTO) 56.5 %; PLT - PLATELET COUNT 200 10^3/uL (130-450); RED BLOOD COUNT 5.25 10^6/uL (4.70-6.10); RED CELL DISTRIBUTION WIDTH 15.4 % (12.0-15.0); WHITE BLOOD COUNT 4.1 x10^3/uL (4.8-10.8)
[2022-02-10 15:45] LABS: CREATININE,URINE 113.1 mg/dL; MICROALBUM/CREATININE RATIO,UR 112.3 ug/mg (<30.0); MICROALBUMIN,URINE 12.7 mg/dL (0-300.0)
[2022-02-10 15:48] LABS: ALBUMIN/GLOBULIN RATIO 1.2 (1.0-2.2); ALKALINE PHOSPHATASE 48 IU/L (42-121); ALT ALANINE AMINOTRANSFERASE 22 IU/L (10-60); AST ASPARTATE AMINOTRANSFERASE 20 IU/L (10-42); BILIRUBIN,TOTAL 0.8 mg/dL (0.2-1.0); BUN - BLOOD UREA NITROGEN 19 mg/dL (6-20); CALCIUM 9.2 mg/dL (8.5-10.3); CARBON DIOXIDE - CO2 27 mmol/L (21-32); CHLORIDE 104 mmol/L (101-111); CHOL/HDL RATIO 5.4 (<5.0); CHOLESTEROL 182 mg/dL; CREATININE 0.8 mg/dL (0.6-1.2); GFR - MDRD 101 (>89); GLUCOSE 100 mg/dL (70-100); HDL CHOLESTEROL 34 mg/dL; LDL CHOLESTEROL,CALCULATED 125 mg/dL; LDL/HDL RATIO 3.7 (<3.6); POTASSIUM 3.8 mmol/L (3.5-5.0); SODIUM 138 mmol/L (135-145); THYROID STIMULATING HORMONE 3.86 uIU/mL (0.34-5.60); TOTAL PROTEIN 7.3 g/dL (6.7-8.2); TRIGLYCERIDES 116 mg/dL; VLDL CHOLESTEROL 23 mg/dL
[2022-02-10 20:19] LABS: ESTIMATED AVERAGE GLUCOSE 117 mg/dL (70-100); HEMOGLOBIN A1c% 5.7 % (4.27-6.07)
== END 2022-02-10 10:07 | disposition home or self-care (01) ==
LOC: LAB.S 10:06
PROVIDERS: ATTEND Registered Nurse
DX: E78.2 Mixed hyperlipidemia (principal); E11.9 Type 2 diabetes mellitus without complications; I10 Essential (primary) hypertension; Z79.01 Long term (current) use of anticoagulants; Z95.2 Presence of prosthetic heart valve
CPT/HCPCS: 36415; 80053; 80061; 82043; 82570; 83036; 83721; 84443; 85025

== ENCOUNTER 2023-01-31 08:00 | Outpatient (CLI) | payer OTHER | END 2023-01-31 23:59 | disposition home or self-care (01) | LOC: LAB 08:00 | PROVIDERS: ATTEND Physician Assistant Medical | DX: N41.0 Acute prostatitis (principal); N39.0 Urinary tract infection, site not specified | CPT/HCPCS: 87086 ==

== ENCOUNTER 2023-09-03 10:29 | Outpatient (CLI) | payer OTHER ==
[2023-09-03 14:34] LABS: BASOPHILS # (AUTO) 0.1 10^3/uL (0.0-0.1); EOSINOPHILS # (AUTO) 0.6 10^3/uL (0.0-0.7); EOSINOPHILS % (AUTO) 11.4 %; HCT - HEMATOCRIT 44.8 % (42.0-52.0); HGB - HEMOGLOBIN 14.2 g/dL (14.0-18.0); LYMPHOCYTES # (AUTO) 1.2 10^3/uL (1.5-3.5); MEAN CORPUSCULAR HEMOGLOBIN 28.2 pg (27.0-31.0); MEAN CORPUSCULAR HGB CONC 31.7 g/dL (32.0-36.0); MEAN CORPUSCULAR VOLUME 88.9 fL (80.0-94.0); MEAN PLATELET VOLUME 9.9 fL (7.4-11.4); MONOCYTES # (AUTO) 0.4 10^3/uL (0.0-1.0); MONOCYTES % (AUTO) 8.5 %; NEUTROPHILS # (AUTO) 2.9 10^3/uL (1.5-6.6); NEUTROPHILS % (AUTO) 55.9 %; PLT - PLATELET COUNT 168 10^3/uL (130-450); RED BLOOD COUNT 5.04 10^6/uL (4.70-6.10); RED CELL DISTRIBUTION WIDTH 15.8 % (12.0-15.0); WHITE BLOOD COUNT 5.2 x10^3/uL (4.8-10.8)
[2023-09-03 15:22] LABS: ALBUMIN 4.4 g/dL (3.2-5.5); ALBUMIN/GLOBULIN RATIO 1.6 (1.0-2.2); BILIRUBIN,TOTAL 0.6 mg/dL (0.2-1.0); CALCIUM 9.6 mg/dL (8.5-10.3); CRP - C-REACTIVE PROTEIN 0.9 mg/dL (<0.5); POTASSIUM 3.9 mmol/L (3.5-4.5); TOTAL PROTEIN 7.1 g/dL (6.4-8.9)
[2023-09-03 21:24] LABS: ESTIMATED AVERAGE GLUCOSE 126 mg/dL (70-100)
== END 2023-09-03 10:30 | disposition home or self-care (01) ==
LOC: LAB.S 10:29
PROVIDERS: ATTEND Registered Nurse
DX: R10.9 Unspecified abdominal pain (principal)
CPT/HCPCS: 36415; 80053; 83036; 85025; 86140

== ENCOUNTER 2023-09-11 13:18 | Emergency (ER) | payer OTHER ==
[2023-09-11 14:04] LABS: BASOPHILS # (AUTO) 0.1 10^3/uL (0.0-0.1); BASOPHILS % (AUTO) 1.3 %; EOSINOPHILS # (AUTO) 0.5 10^3/uL (0.0-0.7); HCT - HEMATOCRIT 43.4 % (42.0-52.0); HGB - HEMOGLOBIN 14.2 g/dL (14.0-18.0); LYMPHOCYTES # (AUTO) 1.1 10^3/uL (1.5-3.5); LYMPHOCYTES % (AUTO) 22.8 %; MEAN CORPUSCULAR HEMOGLOBIN 28.1 pg (27.0-31.0); MEAN CORPUSCULAR HGB CONC 32.7 g/dL (32.0-36.0); MEAN CORPUSCULAR VOLUME 85.9 fL (80.0-94.0); MEAN PLATELET VOLUME 9.9 fL (7.4-11.4); MONOCYTES # (AUTO) 0.3 10^3/uL (0.0-1.0); MONOCYTES % (AUTO) 7.2 %; NEUTROPHILS # (AUTO) 2.7 10^3/uL (1.5-6.6); NEUTROPHILS % (AUTO) 57.5 %; PLT - PLATELET COUNT 162 10^3/uL (130-450); RED BLOOD COUNT 5.05 10^6/uL (4.70-6.10); RED CELL DISTRIBUTION WIDTH 14.7 % (12.0-15.0); WHITE BLOOD COUNT 4.7 x10^3/uL (4.8-10.8)
[2023-09-11 14:10] LABS: INR 2.6 (0.8-1.2); PT - PROTHROMBIN TIME 27.3 secs (9.9-12.6)
[2023-09-11 14:14] LABS: ALBUMIN 4.2 g/dL (3.2-5.5); ALBUMIN/GLOBULIN RATIO 1.4 (1.0-2.2); ALKALINE PHOSPHATASE 49 IU/L (42-121); ALT ALANINE AMINOTRANSFERASE 18 IU/L (10-60); AST ASPARTATE AMINOTRANSFERASE 18 IU/L (10-42); BILIRUBIN,TOTAL 0.5 mg/dL (0.2-1.0); BUN - BLOOD UREA NITROGEN 20 mg/dL (6-20); CALCIUM 9.6 mg/dL (8.5-10.3); CARBON DIOXIDE - CO2 27 mmol/L (21-32); CHLORIDE 101 mmol/L (101-111); CREATININE 0.9 mg/dL (0.6-1.3); GFR - MDRD 88 (>89); GLUCOSE 89 mg/dL (74-104); POTASSIUM 3.6 mmol/L (3.5-4.5); SODIUM 135 mmol/L (135-145); TOTAL PROTEIN 7.2 g/dL (6.4-8.9)
[2023-09-11 14:17] LABS: LIPASE < 10 U/L (11-82)
[2023-09-11] MEDS ORDERED: ONDANSETRON 4 MG/2 ML VIAL IVP STA (14:35)
[2023-09-11 14:36] LABS: BILIRUBIN,URINE NEGATIVE (NEGATIVE); GLUCOSE, URINE (UA) NEGATIVE (NEGATIVE); KETONES,URINE (UA) NEGATIVE (NEGATIVE); LEUKOCYTE ESTERASE, URINE NEGATIVE (NEGATIVE); NITRITE,URINE NEGATIVE (NEGATIVE); OCCULT BLOOD,URINE MODERATE (NEGATIVE); PROTEIN,URINE 30 mg/dL (NEGATIVE); UROBILINOGEN,URINE 0.2 (NORMAL) E.U./dL (NORMAL)
[2023-09-11 14:37] LABS: CLARITY,URINE SL. CLOUDY (CLEAR)
[2023-09-11 14:44] LABS: BACTERIA,URINE Rare /HPF (None Seen); EPITHELIAL CELLS,UR RARE Transitional /HPF (<= Few); SQUAMOUS EPITHELIAL CELL,UR RARE Squamous (<= Few); WBC,URINE 0-3 /HPF (0-3)
[2023-09-11] MEDS ORDERED: iohexoL-300 100 ML VIAL IVP ONE (15:57)
--- NOTE | 2023-09-11 16:36 | CT Report ---
PROCEDURE: ABDOMEN/PELVIS W INDICATIONS: LLQ abd pain x 3 weeks CONTRST: 100ml omni 300 TECHNIQUE: After the administration of intravenous contrast, 5 mm thick sections acquired from the diaphragms to the symphysis. 5 mm thick coronal and sagittal reformats were acquired. For radiation dose reducti on, the following was used: automated exposure control, adjustment of mA and/or kV according to poonam ent size. COMPARISON: CT abdomen pelvis 07/10/2019 FINDINGS: Image quality: Excellent. Lung bases and heart: Unremarkable. Partially visualized aortic valvuloplasty. Liver: No solid mass. Hepatic steatosis. Gallbladder and biliary tree: Surgically absent. No biliary dilation, accounting for post-cholecystec jessy state. Spleen: No splenomegaly. Pancreas: No pancreatic ductal dilation. Previously, the pancreas is diffusely atrophic. Now the body and tail appear solid. Adrenals: No adrenal nodule. Kidneys and ureters: Nonobstructing 4 mm calcification at the inferior pole left kidney. No hydroneph rosis. No renal cystic lesion which requires follow up. No solid mass. Scattered bilateral renal hypo densities, favored to represent simple cysts. Bowel and peritoneum: No bowel distension. No pathologic free fluid. Diverticulosis without evidence of diverticulitis. Lymph nodes: No central or retroperitoneal adenopathy. Vessels: No infrarenal aortic aneurysm. Atherosclerotic vascular calcifications. PELVIS Reproductive organs: Unremarkable. Bladder: No abnormal wall thickening, accounting for underdistension. Pelvic lymph nodes: No pelvic adenopathy by size criteria. Bones: No aggressive osseous abnormality. Degenerative changes of the spine. Other: No significant ventral or inguinal hernia. IMPRESSION: 1.On prior exam, the entire pancreas was atrophic with infiltrating fat, now the body and tail appear more solid with mild surrounding stranding. Correlate for pancreatitis, possible autoimmune. Pancrea tic mass is not definitely excluded. Recommend nonemergent pancreatic protocol MRI or CT. 2.Nonobstructing 4 mm calcification at the inferior pole of the left kidney. 3.Diverticulosis without evidence of acute diverticulitis. 4.Hepatic steatosis. Reviewed by: Jomar Doimnguez MD on 09/11/2023 4:34 PM PST Approved by: Jomar Dominguez MD on 09/11/2023 4:34 PM PST Station ID: [id number]
[2023-09-11 16:52] VITALS: BP 142/86; O2SAT 100
--- NOTE | 2023-09-11 17:08 | ED Physician Documentation ---
History of Present Illness - Stated complaint Stated Complaint: ABD PX - Chief complaint Chief Complaint: Abd Pain - History obtained from History obtained from: Patient - History of Present Illness Timing: How many weeks ago (3) Pain level max: 5 Pain level now: 5 - Additonal information Additional information: Patient is a 53-year-old male who presents to the emergency department with 3 weeks of left lower quadrant abdominal pain. Feels similar to prior kidney stones. No fevers. No chills. No vomiting. No diarrhea. No constipation. Nothing makes it better or worse. No urinary symptoms. No hematuria. No dysuria. 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 (Kidney 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) Cardiovascular: Valve replacement, Other - Present Medications Home Medications: Ambulatory Orders Medication Instructions Recorded Confirmed Aspirin [Aspir 81] 81 mg PO DAILY 09/06/14 01/04/20 Metoprolol Tartrate 12.5 mg PO BID 09/06/14 01/04/20 Warfarin Sodium [Coumadin] 10 mg PO DAILY 09/06/14 01/04/20 Warfarin Sodium [Coumadin] 12.5 mg PO DAILY 09/06/14 01/04/20 lisinopriL [Lisinopril] 40 mg PO DAILY 09/06/14 01/04/20 Metformin HCl 1,000 mg PO BID 03/25/17 01/04/20 amLODIPine [Norvasc] 5 mg PO DAILY 03/26/19 01/04/20 - Allergies Allergies/Adverse Reactions: Allergies Allergy/AdvReac Type Severity Reaction Status Date / Time morphine Allergy Unknown Verified 09/11/23 13:39 - Social History Does the pt smoke?: No Smoking Status: Never smoker Does the pt drink ETOH?: Yes Does the pt have substance abuse?: No - Immunizations Immunizations are current?: Yes - POLST Patient has POLST: No PD ED PE NORMAL - Vitals Vital signs reviewed: Yes - General General: Alert and oriented X 3, No acute distress - HEENT HEENT: Moist mucous membranes - Neck Neck: Supple, no meningeal sign - Cardiac Cardiac: RRR, Strong equal pulses - Respiratory Respiratory: No respiratory distress, Clear bilaterally - Abdomen Abdomen: Soft, Non tender, Non distended - Back Back: No CVA TTP, No spinal TTP - Derm Derm: Warm and dry - Extremities Extremities: No edema, No calf tenderness / cord - Neuro Neuro: Alert and oriented X 3 - Psych Psych: Normal mood, Normal affect Results - Vitals Vitals: Vital Signs - 24 hr 09/11/23 09/11/23 09/11/23 13:36 15:10 16:37 Temperature 36.5 C 36.6 C 36.8 C Heart Rate 69 78 59 L Respiratory 16 17 15 Rate Blood Pressure 147/90 H 148/76 H 142/86 H O2 Saturation 95 98 100 09/11/23 17:20 Temperature 36.8 C Heart Rate Respiratory Rate Blood Pressure O2 Saturation Oxygen O2 Source Room air - Labs Labs: Laboratory Tests 09/11/23 09/11/23 09/11/23 13:54 13:54 13:54 WBC 4.7 L RBC 5.05 Hgb 14.2 Hct 43.4 MCV 85.9 MCH 28.1 MCHC 32.7 RDW 14.7 Plt Count 162 MPV 9.9 Neut # (Auto) 2.7 Lymph # (Auto) 1.1 L [place] # (Auto) 0.3 Eos # (Auto) 0.5 Baso # (Auto) 0.1 Absolute Nucleated RBC 0.00 Nucleated RBC % 0.0 PT 27.3 H INR 2.6 H Sodium 135 Potassium 3.6 Chloride 101 Carbon Dioxide 27 Anion Gap 7.0 BUN 20 Creatinine 0.9 Estimated GFR (MDRD) 88 L Glucose 89 Calcium 9.6 Total Bilirubin 0.5 AST 18 ALT 18 Alkaline Phosphatase 49 Total Protein 7.2 Albumin 4.2 Globulin 3.0 Albumin/Globulin Ratio 1.4 Lipase < 10 L Urine Color Urine Clarity Urine pH Ur Specific [place] Urine Protein Urine Glucose (UA) Urine Ketones Urine Occult Blood Urine Nitrite Urine Bilirubin Urine Urobilinogen Ur Leukocyte Esterase Urine RBC Urine WBC Ur Epithelial Cells Ur Squamous Epith Cells Urine Bacteria Ur Microscopic Review Urine Culture Comments 09/11/23 14:15 WBC RBC Hgb Hct MCV MCH MCHC RDW Plt Count MPV Neut # (Auto) Lymph # (Auto) [place] # (Auto) Eos # (Auto) Baso # (Auto) Absolute Nucleated RBC Nucleated RBC % PT INR Sodium Potassium Chloride Carbon Dioxide Anion Gap BUN Creatinine Estimated GFR (MDRD) Glucose Calcium Total Bilirubin AST ALT Alkaline Phosphatase Total Protein Albumin Globulin Albumin/Globulin Ratio Lipase Urine Color YELLOW Urine Clarity SL. CLOUDY Urine pH 6.0 Ur Specific [place] 1.010 Urine Protein 30 H Urine Glucose (UA) NEGATIVE Urine Ketones NEGATIVE Urine Occult Blood MODERATE H Urine Nitrite NEGATIVE Urine Bilirubin NEGATIVE Urine Urobilinogen 0.2 (NORMAL) Ur Leukocyte Esterase NEGATIVE Urine RBC 6-10 H Urine WBC 0-3 Ur Epithelial Cells RARE Transitional Ur Squamous Epith Cells RARE Squamous Urine Bacteria Rare Ur Microscopic Review INDICATED Urine Culture Comments NOT INDICATED - Rads (name of study) CT abdomen pelvis Relevant Findings:: Final report received, See rad report PD Medical Decision Making - ED course Complexity details: reviewed results, re-evaluated patient, considered differential, d/w patient ED course: 53-year-old male with 3 weeks of left sided abdominal pain. Patient is well- appearing, nontoxic. Afebrile. No significant lab abnormalities. CT scan shows what appears to be a possible chronic pancreatitis, patient does not have pain in this area and his lipase is normal. Recommend an outpatient dedicated pancreatic CT or MRI. Patient does have hematuria. There appears to be a 3 mm ureteral stone in the bladder tunnel. There is no significant hydronephrosis. Patient declines any pain medications here or for home. The ureteral stone is likely the cause of his pain. Patient counseled regarding signs and symptoms for which I believe and urgent re-evaluation would be necessary. Patient with good understanding of and agreement to plan and is comfortable going home at this time This document was made in part using voice recognition software. While efforts are made to proofread this document, sound alike and grammatical errors may occur. IMPRESSION: 1.On prior exam, the entire pancreas was atrophic with infiltrating fat, now the body and tail appear more solid with mild surrounding stranding. Correlate for pancreatitis, possible autoimmune. Pancreatic mass is not definitely excluded. Recommend nonemergent pancreatic protocol MRI or CT. 2.Nonobstructing 4 mm calcification at the inferior pole of the left kidney. 3.Diverticulosis without evidence of acute diverticulitis. 4.Hepatic steatosis. Departure - Departure Disposition: 01 Home, Self Care Clinical Impression: Left ureteral stone Condition: Good Instructions: ED Stone Renal W Colic Follow-Up: ROLAND HALE MD [Primary Care Provider] - Within 1 week Comments: You have a left-sided ureteral stone that is passing into the bladder. You also appear to have some mild stranding around your pancreas, in the past this appeared similar to pancreatitis, possible autoimmune pancreatitis. Radiology r ecommends a nonemergent pancreatic protocol MRI or CT. There is no diverticulitis but you do have diverticulosis. Please follow-up with your doctor for further care. PROCEDURE: ABDOMEN/PELVIS W INDICATIONS: LLQ abd pain x 3 weeks CONTRST: 100ml omni 300 TECHNIQUE: After the administration of intravenous contrast, 5 mm thick sections acquired from the diaphragms to the symphysis. 5 mm thick coronal and sagittal reformats were acquired. For radiation dose reduction, the following was used: automated exposure control, adjustment of mA and/or kV according to patient size. COMPARISON: CT abdomen pelvis 07/10/2019 FINDINGS: Image quality: Excellent. Lung bases and heart: Unremarkable. Partially visualized aortic valvuloplasty. Liver: No solid mass. Hepatic steatosis. Gallbladder and biliary tree: Surgically absent. No biliary dilation, accounting for post- cholecystectomy state. Spleen: No splenomegaly. Pancreas: No pancreatic ductal dilation. Previously, the pancreas is diffusely atrophic. Now the body and tail appear solid. Adrenals: No adrenal nodule. Kidneys and ureters: Nonobstructing 4 mm calcification at the inferior pole left kidney. No hydronephrosis. No renal cystic lesion which requires follow up. No solid mass. Scattered bilateral renal hypodensities, favored to represent simple cysts. Bowel and peritoneum: No bowel distension. No pathologic free fluid. Diverticulosis without evidence of diverticulitis. Lymph nodes: No central or retroperitoneal adenopathy. Vessels: No infrarenal aortic aneurysm. Atherosclerotic vascular calcifications. PELVIS Reproductive organs: Unremarkable. Bladder: No abnormal wall thickening, accounting for underdistension. Pelvic lymph nodes: No pelvic adenopathy by size criteria. Bones: No aggressive osseous abnormality. Degenerative changes of the spine. Other: No significant ventral or inguinal hernia. IMPRESSION: 1.On prior exam, the entire pancreas was atrophic with infiltrating fat, now the body and tail appear more solid with mild surrounding stranding. Correlate for pancreatitis, possible autoimmune. Pancreatic mass is not definitely excluded. Recommend nonemergent pancreatic protocol MRI or CT. 2.Nonobstructing 4 mm calcification at the inferior pole of the left kidney. 3.Diverticulosis without evidence of acute diverticulitis. 4.Hepatic steatosis. Forms: PCP List Discharge Date/Time: 09/11/23 17:20
== END 2023-09-11 17:20 | disposition home or self-care (01) ==
LOC: ED 13:18
DX: N20.0 Calculus of kidney (principal); I10 Essential (primary) hypertension; E11.9 Type 2 diabetes mellitus without complications; Z79.84 Long term (current) use of oral hypoglycemic drugs; Z79.01 Long term (current) use of anticoagulants
CPT/HCPCS: 36415; 74177; 80053; 81001; 83690; 85025; 85610; 96374; 99283; 99284; Q9967; 81003; 87086

== ENCOUNTER 2023-10-03 20:54 | Emergency (ER) | payer OTHER ==
[2023-10-03] MEDS ORDERED: oxyCODONE/ACET 5/325 Prepack 4 PO STA (21:20)
[2023-10-03] MEDS ORDERED: KETOROLAC 30 MG/ML VIAL IM STA (21:21)
[2023-10-03 21:22] LABS: BASOPHILS # (AUTO) 0.1 10^3/uL (0.0-0.1); BASOPHILS % (AUTO) 0.8 %; EOSINOPHILS # (AUTO) 0.4 10^3/uL (0.0-0.7); EOSINOPHILS % (AUTO) 5.3 %; HCT - HEMATOCRIT 45.7 % (42.0-52.0); HGB - HEMOGLOBIN 14.6 g/dL (14.0-18.0); LYMPHOCYTES # (AUTO) 1.2 10^3/uL (1.5-3.5); LYMPHOCYTES % (AUTO) 15.8 %; MEAN CORPUSCULAR HEMOGLOBIN 27.9 pg (27.0-31.0); MEAN CORPUSCULAR HGB CONC 31.9 g/dL (32.0-36.0); MEAN CORPUSCULAR VOLUME 87.4 fL (80.0-94.0); MEAN PLATELET VOLUME 9.8 fL (7.4-11.4); MONOCYTES # (AUTO) 0.5 10^3/uL (0.0-1.0); MONOCYTES % (AUTO) 7.1 %; NEUTROPHILS # (AUTO) 5.2 10^3/uL (1.5-6.6); NEUTROPHILS % (AUTO) 70.9 %; PLT - PLATELET COUNT 166 10^3/uL (130-450); RED BLOOD COUNT 5.23 10^6/uL (4.70-6.10); RED CELL DISTRIBUTION WIDTH 15.1 % (12.0-15.0); WHITE BLOOD COUNT 7.3 x10^3/uL (4.8-10.8)
--- NOTE | 2023-10-03 21:24 | ED Physician Documentation ---
History of Present Illness - Stated complaint Stated Complaint: LOWER L ABD PX - Chief complaint Chief Complaint: Abd Pain - History obtained from History obtained from: Patient - Additonal information Additional information: 53yM with pmh newly diagnosed pancreatic mass, BL kidney stones p/w persistent pain he attributes to his stones, acutely worsening this evening. He just had a full workup on 09/30 through [place] with normal blood test for kidney function, no uti on u/a, no hydronephrosis on ct, and BL nonobstructing 2-4 mm kidney stones. He currently denies fever, urinary sx, back pain. does have significant LLQ pain. denies n/v. 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) Cardiovascular: Valve replacement, Other - Present Medications Home Medications: Ambulatory Orders Medication Instructions Recorded Confirmed Aspirin [Aspir 81] 81 mg PO DAILY 09/06/14 01/04/20 Metoprolol Tartrate 12.5 mg PO BID 09/06/14 01/04/20 Warfarin Sodium [Coumadin] 10 mg PO DAILY 09/06/14 01/04/20 Warfarin Sodium [Coumadin] 12.5 mg PO DAILY 09/06/14 01/04/20 lisinopriL [Lisinopril] 40 mg PO DAILY 09/06/14 01/04/20 Metformin HCl 1,000 mg PO BID 03/25/17 01/04/20 amLODIPine [Norvasc] 5 mg PO DAILY 03/26/19 01/04/20 Oxycodone HCl/Acetaminophen 1 each PO Q4H PRN #8 tablet 10/03/23 [Percocet 5-325 mg Tablet] - Allergies Allergies/Adverse Reactions: Allergies Allergy/AdvReac Type Severity Reaction Status Date / Time morphine Allergy Unknown Verified 10/03/23 21:06 - Social History Does the pt smoke?: No Smoking Status: Never smoker Does the pt drink ETOH?: Yes Does the pt have substance abuse?: No - Immunizations Immunizations are current?: Yes - POLST Patient has POLST: No PD ED PE NORMAL - Vitals Vital signs reviewed: Yes - General General: Alert and oriented X 3, No acute distress, Well developed/nourished - HEENT HEENT: Atraumatic, PERRL, EOMI - Neck Neck: Supple, no meningeal sign - Cardiac Cardiac: RRR - Respiratory Respiratory: No respiratory distress, Clear bilaterally - Abdomen Abdomen: Other (LLQ discomfort to palpation) Results - Vitals Vitals: Vital Signs - 24 hr 10/03/23 20:58 Temperature 36.4 C L Heart Rate 63 Respiratory 17 Rate Blood Pressure 151/84 H O2 Saturation 99 Oxygen O2 Source Room air - Labs Labs: Laboratory Tests 10/03/23 21:15 WBC 7.3 RBC 5.23 Hgb 14.6 Hct 45.7 MCV 87.4 MCH 27.9 MCHC 31.9 L RDW 15.1 H Plt Count 166 MPV 9.8 Neut # (Auto) 5.2 Lymph # (Auto) 1.2 L [place] # (Auto) 0.5 Eos # (Auto) 0.4 Baso # (Auto) 0.1 Absolute Nucleated RBC 0.00 Nucleated RBC % 0.0 PD Medical Decision Making - ED course ED course: 53-year-old man with recently diagnosed kidney stones, and extensive workup just completed on 09/30 with paperwork and handed here in the emergency department presents with persistent kidney stone pain. Since he just had a full workup and has no new symptoms I am prescribing pain medication and having him follow-up with his urologist. Return precautions discussed. Departure - Departure Disposition: 01 Home, Self Care Clinical Impression: Kidney stones Condition: Stable Instructions: Acetaminophen Oxycodone tablets, Kidney Stones Prescriptions: Oxycodone HCl/Acetaminophen [Percocet 5-325 mg Tablet] 1 each PO Q4H PRN #8 tablet PRN Reason: Pain >8 Comments: A script for percoset was sent electronically to [facility] in [place]. Do not use when driving or operating heavy machinery. Dispose of any unused pills at your local police station. This medication may cause constipation. If you are prone to constipation then please take with [id number] sennadocusate and [id number]. Forms: PCP List
[2023-10-03 21:42] LABS: ALBUMIN 4.4 g/dL (3.2-5.5)
[2023-10-03 21:47] LABS: ALKALINE PHOSPHATASE 59 IU/L (42-121); ALT ALANINE AMINOTRANSFERASE 22 IU/L (10-60); BUN - BLOOD UREA NITROGEN 21 mg/dL (6-20); CALCIUM 9.2 mg/dL (8.5-10.3); CARBON DIOXIDE - CO2 25 mmol/L (21-32); CHLORIDE 105 mmol/L (101-111); CREATININE 1.1 mg/dL (0.6-1.3); GFR - MDRD 69 (>89); GLUCOSE 135 mg/dL (74-104); POTASSIUM 3.5 mmol/L (3.5-4.5); SODIUM 137 mmol/L (135-145)
[2023-10-03 21:49] VITALS: BP 156/114; O2SAT 97
[2023-10-03 22:01] LABS: ALBUMIN/GLOBULIN RATIO 1.4 (1.0-2.2); AST ASPARTATE AMINOTRANSFERASE 18 IU/L (10-42); BILIRUBIN,TOTAL 0.5 mg/dL (0.2-1.0); LIPASE < 10 U/L (11-82); TOTAL PROTEIN 7.5 g/dL (6.4-8.9)
== END 2023-10-03 21:47 | disposition home or self-care (01) ==
LOC: ED 20:54
DX: N20.0 Calculus of kidney (principal); I10 Essential (primary) hypertension; E11.9 Type 2 diabetes mellitus without complications; Z95.2 Presence of prosthetic heart valve; Z79.01 Long term (current) use of anticoagulants
CPT/HCPCS: 36415; 80053; 83690; 85025; 96372; 99283; 99284

== ENCOUNTER 2023-11-09 17:25 | Outpatient (CLI) | payer OTHER ==
[2023-11-09] MEDS ORDERED: iohexoL-300 100 ML VIAL ONE (17:28)
[2023-11-09] MEDS ORDERED: DIATRIZOATE MEGLU/DIATRIZO SOD 30 ML BOTTLE PO ONE (17:28)
[2023-11-09] MEDS: DIATRIZOATE MEGLU/DIATRIZO SOD 30 ML BOTTLE PO ONE (18:38)
[2023-11-09] MEDS: iohexoL-300 100 ML VIAL IVP ONE (18:38)
--- NOTE | 2023-11-09 18:50 | CT Report ---
PROCEDURE: Chest W INDICATIONS: PANCREAS NEOPLASM CONTRAST: 100ml omni 300 TECHNIQUE: After the administration of intravenous contrast, a CT scan of the chest was performed. Images were recorded and evaluated at appropriate window settings. Reformats: axial MIP of the chest, coronal and sagittal. For radiation dose reduction, the following was used: automated exposure control, adjustme nt of mA and/or kV according to patient size. COMPARISON: None. FINDINGS: Image quality: Diagnostic. Chest wall and lower neck: Enlarged thyroid gland with small hypodense nodules in right thyroid lobe measures up to 1 x 0.8 cm in size series 4 No axillary or supraclavicular adenopathy by size. Right c hest wall Port-A-Cath tip is in SVC. Lungs and pleura: No consolidation. No pleural effusions. No pneumothorax. 3 mm solid nodule is seen in posterior lateral aspect of lingula segment anterior to the oblique fiss ure series 4 image 68. 3 mm solid nodule is noted in anterolateral right middle lobe series 4 image 50. No suspicious pulmonary nodules which require follow up. Mediastinum: Heart size is normal. No pericardial effusion. No thoracic aortic aneurysm. Mild to mode rate atherosclerotic disease in coronary vessels are seen with 2 vessel involvement. Prominent size o f main pulmonary artery which can be seen associated with pulmonary vascular hypertension. No mediast inal adenopathy by size criteria. Bones: No aggressive osseous abnormality. Upper Abdomen: Please correlate with CT of abdomen and pelvis findings. IMPRESSION: 1. 2 tiny solid and part solid nodules in left lingular segment and right middle lobe as described ab ove. These likely represent benign pulmonary nodules by size criteria. Follow-up chest CT in 12 month s can be done for further evaluation of stability. 2. No focal infiltrate, pleural effusion or pneumothorax. Airway is patent. 3. No mediastinal or hilar lymphadenopathy. [id number]-xs-[id number] atherosclerotic disease including gupta ry vessels. Prominent size of main pulmonary artery which can be seen associated with pulmonary vascu lar hypertension. 4. Enlarged thyroid gland with multiple hypodense thyroid nodules as described above and may represen t nodular goiter. Reviewed by: Richard Desai MD on 11/09/2023 6:49 PM PST Approved by: Richard Desai MD on 11/09/2023 6:49 PM PST Station ID: [id number]
--- NOTE | 2023-11-09 18:59 | CT Report ---
PROCEDURE: Abdomen/Pelvis W INDICATIONS: PANCREAS NEOPLASM CONTRAST: 100ml omni 300 TECHNIQUE: After the administration of intravenous contrast, a CT scan of the abdomen and pelvis was performed. Images were recorded and evaluated at appropriate window settings. Reformats: coronal and sagittal. F or radiation dose reduction, the following was used: automated exposure control, adjustment of mA and /or kV according to patient size. COMPARISON: None. FINDINGS: Image quality: Diagnostic. Lower chest: Unremarkable. Liver: No solid mass. Hepatic steatosis is seen. Gallbladder and biliary tree: Gallbladder is surgically absent. Spleen: No splenomegaly. Pancreas: No pancreatic ductal dilation. Hypodense area involving body and tail of pancreas is seen c oncerning for a large pancreatic mass and measures up to 6.3 x 2.7 cm in size series [address] clinical correlation. No peripancreatic inflammatory changes. Adrenals: No adrenal nodule. Kidneys and ureters: No hydronephrosis. No renal cystic lesion which requires follow up. No solid mas s. Nonobstructing 4 mm stone in lower pole left kidney is again seen and unchanged. Stomach, bowel and peritoneum: No bowel distension. No pathologic free fluid. Appendix is likely surg ically absent. Lymph nodes: No central or retroperitoneal adenopathy. Vessels: No infrarenal aortic aneurysm. PELVIS Reproductive organs: Unremarkable. Bladder: No abnormal wall thickening, accounting for underdistention. Pelvic lymph nodes: No pelvic adenopathy by size criteria. Bones: No aggressive osseous abnormality. No acute vertebral body compression fracture. Other: No significant ventral or inguinal hernia. IMPRESSION: 1. Finding is concerning for 6.3 x 2.7 cm hypodense mass involving pancreatic body and tail given pat ient's history. No peripancreatic inflammatory changes. 2. No biliary ductal dilatation. 3. Hepatic steatosis, no discrete hepatic lesion. Gallbladder is surgically absent. 4. No bowel obstruction or abnormal bowel wall thickening. No peritoneal free fluid of free air. 5. No abnormally enlarged lymph nodes are seen in abdomen or pelvis. Reviewed by: Richard Desai MD on 11/09/2023 6:58 PM PST Approved by: Richard Desai MD on 11/09/2023 6:58 PM PST Station ID: [id number]
== END 2023-11-09 17:26 | disposition home or self-care (01) ==
LOC: DI 17:25
PROVIDERS: ATTEND Internal Medicine
DX: C25.1 Malignant neoplasm of body of pancreas (principal); R91.8 Other nonspecific abnormal finding of lung field; K76.0 Fatty (change of) liver, not elsewhere classified
CPT/HCPCS: 71260; 74177; Q9963; Q9967

== ENCOUNTER 2023-11-29 12:29 | Emergency (ER) | payer OTHER ==
--- NOTE | 2023-11-29 12:52 | ED Physician Documentation ---
PD HPI CHEST PAIN - Stated complaint Stated Complaint: CHEST PRESSURE/LUNGS HURTING - Chief complaint Chief Complaint: Cardiac - History obtained from History obtained from: Patient - History of Present Illness Timing - onset: Yesterday Timing - onset during: Light activity Timing - duration: Days (1 day with it somewhat lessened today but still presen t. Feeling of jittery, anxious, chest tightness and can't stay still.) Timing - details: Abrupt onset (onset shortly after chemotherapy and other meds yesterday. Particularly given compazine for nausea. No noted steroids. ( has list of meds given to him written down with her).), Still present Quality: Tightness Location: Substernal Radiation: No: Jaw, Neck, Back Improved by: No: Rest Worsened by: Movement. No: Inspiration Associated symptoms: Other (anxious and jittery). No: Shortness of air, Diaphoresis, Nausea Recently seen: Clinic (yesterday had first dose of chemo for pancreatic cancer. Chemo over 6 hours, also given compazine for nausea near end of encounter. Anxious and restless shortly after that (1/2-1 hour) while leaving. Continued through home and overnight. Unable to sleep. Has script for nausea compazine.) Review of Systems Constitutional: denies: Fever, Chills Nose: denies: Rhinorrhea / runny nose, Congestion Throat: denies: Sore throat Respiratory: denies: Cough GI: reports: Nausea. 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: Other (Kidney 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) Cardiovascular: Valve replacement, Other - Present Medications Home Medications: Ambulatory Orders Medication Instructions Recorded Confirmed Aspirin [Aspir 81] 81 mg PO DAILY 09/06/14 11/29/23 Metoprolol Tartrate 25 mg PO DAILY 09/06/14 11/29/23 Warfarin Sodium [Coumadin] 7.5 mg PO DAILY 09/06/14 11/29/23 Warfarin Sodium [Coumadin] 10 mg PO DAILY 09/06/14 11/29/23 lisinopriL [Lisinopril] 40 mg PO DAILY 09/06/14 11/29/23 Metformin HCl 500 mg PO BID 03/25/17 11/29/23 amLODIPine [Norvasc] 5 mg PO DAILY 03/26/19 11/29/23 LORazepam [Ativan] 1 mg PO BID PRN #12 tablet 11/29/23 Ondansetron Odt [Zofran Odt] 8 mg PO PRN PRN 11/29/23 11/29/23 Prochlorperazine Maleate 10 mg PO PRN PRN 11/29/23 11/29/23 [Compazine] oxyCODONE [Roxicodone] 5 mg PO PRN PRN 11/29/23 11/29/23 - Allergies Allergies/Adverse Reactions: Allergies Allergy/AdvReac Type Severity Reaction Status Date / Time morphine Allergy Unknown Verified 11/29/23 12:49 - Social History Does the pt smoke?: No Smoking Status: Never smoker Does the pt drink ETOH?: Yes Does the pt have substance abuse?: No - Immunizations Immunizations are current?: Yes - POLST Patient has POLST: No PD ED PE NORMAL - Vitals Vital signs reviewed: Yes - General General: Alert and oriented X 3, Well developed/nourished, Other (seems very anxious and physically restless. bothered by it. No rhythmic movements. No grimace. ) - HEENT HEENT: PERRL, EOMI - Neck Neck: Supple, no meningeal sign, No adenopathy, No bruit - Cardiac Cardiac: RRR, No murmur - Respiratory Respiratory: Clear bilaterally - Derm Derm: Normal color, Warm and dry, No rash - Neuro Neuro: Alert and oriented X 3, No motor deficit, No sensory deficit, Normal spe ech Results - Vitals Vitals: Oxygen O2 Source Room air - Labs Labs: Laboratory Tests 11/29/23 11/29/23 11/29/23 12:55 12:55 12:55 WBC 16.1 H RBC 5.20 Hgb 14.6 Hct 45.1 MCV 86.7 MCH 28.1 MCHC 32.4 RDW 14.5 Plt Count 164 MPV 10.1 Neut # (Auto) 14.7 H Lymph # (Auto) 0.9 L [place] # (Auto) 0.3 Eos # (Auto) 0.1 Baso # (Auto) 0.1 Absolute Nucleated RBC 0.00 Nucleated RBC % 0.0 Sodium 134 L Potassium 3.6 Chloride 98 L Carbon Dioxide 29 Anion Gap 7.0 BUN 22 H Creatinine 1.0 Estimated GFR (MDRD) 78 L Glucose 135 H Calcium 9.7 Magnesium 1.9 Total Bilirubin 1.0 AST 41 ALT 74 H Alkaline Phosphatase 77 Troponin I High Sens 4.0 Total Protein 7.1 Albumin 4.0 Globulin 3.1 Albumin/Globulin Ratio 1.3 Lipase 34 PD Medical Decision Making - ED course Complexity details: reviewed results (chemistry panel is good. ), re-evaluated patient (symptoms are mostly all gone after IV fluids and Benadryl c/w med related symptoms. He has script for zofran as well for nausea so not to use compazine. Has underlying anxiety as well, so given Rx for Lorazepam to use PRn short term, as the process of the new chemo/etc also is anxiety provoking.), considered differential (timing and symptoms sound like phenothiazine related akathesia. Can try benadryl. But also check sodiuma nd glucose for other potential. ), d/w patient Departure - Departure Disposition: 01 Home, Self Care Clinical Impression: Dyspnea, Drug induced akathisia Condition: Stable Record reviewed to determine appropriate education?: Yes Prescriptions: LORazepam [Ativan] 1 mg PO BID PRN #12 tablet PRN Reason: Anxiety Comments: Your chest x-ray is clear without any signs of lung abnormality. Your EKG and blood test called troponin are normal so no signs of acute heart muscle injury/heart attack. Basic electrolytes and kidney function and blood sugar are good. The timing of your symptoms and character of them does sound like a side effect to the Compazine. It is a little unusual lasted this long. I would assume it not come back now that the symptoms are improved. If you have recurring symptoms related to taking the ondansetron/Zofran, then stop taking that as well. The Zofran is of a different pharmacologic class compared to the other nausea medicines and so I would not anticipate having the same side effect or symptoms. If you are having some anxiety related to situational stresses, which is not unreasonable given your current medical situation, then you could use lorazepam/Ativan twice daily if needed. Stay well-hydrated otherwise. Follow-up with your oncologist as planned. If you have some level of restlessness or such, you can use the Benadryl or other antihistamine such as Claritin or Zyrtec. I sent your prescription to your preferred pharmacy. Forms: PCP List Discharge Date/Time: 11/29/23 15:16
[2023-11-29 13:09] LABS: BASOPHILS # (AUTO) 0.1 10^3/uL (0.0-0.1); BASOPHILS % (AUTO) 0.4 %; EOSINOPHILS # (AUTO) 0.1 10^3/uL (0.0-0.7); EOSINOPHILS % (AUTO) 0.3 %; HCT - HEMATOCRIT 45.1 % (42.0-52.0); HGB - HEMOGLOBIN 14.6 g/dL (14.0-18.0); LYMPHOCYTES # (AUTO) 0.9 10^3/uL (1.5-3.5); LYMPHOCYTES % (AUTO) 5.6 %; MEAN CORPUSCULAR HEMOGLOBIN 28.1 pg (27.0-31.0); MEAN CORPUSCULAR HGB CONC 32.4 g/dL (32.0-36.0); MEAN CORPUSCULAR VOLUME 86.7 fL (80.0-94.0); MEAN PLATELET VOLUME 10.1 fL (7.4-11.4); MONOCYTES # (AUTO) 0.3 10^3/uL (0.0-1.0); MONOCYTES % (AUTO) 1.9 %; NEUTROPHILS # (AUTO) 14.7 10^3/uL (1.5-6.6); PLT - PLATELET COUNT 164 10^3/uL (130-450); RED CELL DISTRIBUTION WIDTH 14.5 % (12.0-15.0); WHITE BLOOD COUNT 16.1 x10^3/uL (4.8-10.8)
--- NOTE | 2023-11-29 13:21 | XRAY Report ---
PROCEDURE: Chest 1V INDICATIONS: Chest pain TECHNIQUE: One view of the chest was acquired. COMPARISON: 01/04/2020 FINDINGS: Surgical changes and devices: Median sternotomy. Lungs and pleura: No pleural effusions or pneumothorax. Lungs are clear. Mediastinum: Mediastinal contours appear normal. Heart size is normal. Bones and chest wall: No suspicious bony lesions. Overlying soft tissues appear unremarkable. IMPRESSION: No acute cardiopulmonary process. Reviewed by: Blanquita Ventura MD on 11/29/2023 1:20 PM PST Approved by: Blanquita Ventura MD on 11/29/2023 1:20 PM [facility] Station ID: [id number]
[2023-11-29 13:25] LABS: ALBUMIN/GLOBULIN RATIO 1.3 (1.0-2.2); CALCIUM 9.7 mg/dL (8.5-10.3); POTASSIUM 3.6 mmol/L (3.5-4.5); TOTAL PROTEIN 7.1 g/dL (6.4-8.9)
[2023-11-29] MEDS: SODIUM CHLORIDE 0.9% 1,000 ML IV STA (13:30)
[2023-11-29] MEDS: diphenhydrAMINE INJ 50 MG/ML VIAL IVP STA (13:30)
[2023-11-29 15:24] VITALS: BP 146/77; O2SAT 97
== END 2023-11-29 15:16 | disposition home or self-care (01) ==
LOC: ED 12:29
DX: G25.71 Drug induced akathisia (principal); R06.00 Dyspnea, unspecified; C25.9 Malignant neoplasm of pancreas, unspecified; Z79.60 Long term (current) use of unspecified immunomodulators and immunosuppressants; I10 Essential (primary) hypertension; I20.9 Angina pectoris, unspecified; I49.9 Cardiac arrhythmia, unspecified; G47.30 Sleep apnea, unspecified; E11.9 Type 2 diabetes mellitus without complications; Z95.2 Presence of prosthetic heart valve; Z79.82 Long term (current) use of aspirin; Z79.899 Other long term (current) drug therapy
CPT/HCPCS: 36415; 71045; 80053; 83690; 83735; 84484; 85025; 93005; 96374; 99283; 99284; J1200

== ENCOUNTER 2023-12-18 02:19 | Outpatient (CLI) | payer OTHER | END 2023-12-18 02:20 | disposition critical access hospital (66) | LOC: EMS 02:19 | DX: R07.9 Chest pain, unspecified (principal); M25.512 Pain in left shoulder; M25.511 Pain in right shoulder; M54.6 Pain in thoracic spine; R11.0 Nausea | CPT/HCPCS: A0425; A0427 ==

== ENCOUNTER 2023-12-18 02:50 | Emergency (ER) | payer OTHER ==
--- NOTE | 2023-12-18 03:01 | ED Physician Documentation ---
History of Present Illness - Stated complaint Stated Complaint: CHEST PX - History obtained from History obtained from: Patient - Additonal information Additional information: The patient is brought to the emergency department by EMS for chief complaint of chest pain. He states that he was laying in bed and began to notice a pain that went down both sides of his sternum to his abdomen and then he felt a pressure- like sensation substernally. The patient states that the pain shot to both shoulders and into his back. He was given 3 nitroglycerin tablets and route and is feeling much better now. He has no history of coronary artery disease or any MIs. He did have an aortic valve replacement about 11 years ago. The patient denies any shortness of breath today. He did get some nausea which has persisted. He denies any swelling in his legs or calf pain. No history of DVT. No cough or recent fever. 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 (Kidney 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) Cardiovascular: Valve replacement, Other - Present Medications Home Medications: Ambulatory Orders Medication Instructions Recorded Confirmed Aspirin [Aspir 81] 81 mg PO DAILY 09/06/14 11/29/23 Metoprolol Tartrate 25 mg PO DAILY 09/06/14 11/29/23 Warfarin Sodium [Coumadin] 7.5 mg PO DAILY 09/06/14 11/29/23 Warfarin Sodium [Coumadin] 10 mg PO DAILY 09/06/14 11/29/23 lisinopriL [Lisinopril] 40 mg PO DAILY 09/06/14 11/29/23 Metformin HCl 500 mg PO BID 03/25/17 11/29/23 amLODIPine [Norvasc] 5 mg PO DAILY 03/26/19 11/29/23 LORazepam [Ativan] 1 mg PO BID PRN #12 tablet 11/29/23 Ondansetron Odt [Zofran Odt] 8 mg PO PRN PRN 11/29/23 11/29/23 Prochlorperazine Maleate 10 mg PO PRN PRN 11/29/23 11/29/23 [Compazine] oxyCODONE [Roxicodone] 5 mg PO PRN PRN 11/29/23 11/29/23 Nitroglycerin [Nitrostat] 0.4 mg SL Q5MIN PRN #25 tablet 12/18/23 - Allergies Allergies/Adverse Reactions: Allergies Allergy/AdvReac Type Severity Reaction Status Date / Time morphine Allergy Unknown Verified 12/18/23 02:59 - Social History Does the pt smoke?: No Smoking Status: Never smoker Does the pt drink ETOH?: Yes Does the pt have substance abuse?: No - Immunizations Immunizations are current?: Yes - POLST Patient has POLST: No PD ED PE NORMAL - Vitals Vital signs reviewed: Yes - General General: Alert and oriented X 3, No acute distress - HEENT HEENT: Atraumatic, PERRL, EOMI, Moist mucous membranes - Neck Neck: Supple, no meningeal sign - Cardiac Cardiac: RRR, No murmur, Strong equal pulses - Respiratory Respiratory: No respiratory distress, Clear bilaterally - Abdomen Abdomen: Soft, Non tender, Non distended - Derm Derm: Normal color, Warm and dry, No rash - Extremities Extremities: No deformity, No edema, No calf tenderness / cord - Neuro Neuro: Alert and oriented X 3, Other (Grossly intact) - Psych Psych: Normal mood, Normal affect Results - Vitals Vitals: Vital Signs - 24 hr 12/18/23 12/18/23 12/18/23 02:56 03:00 05:00 Temperature 37 C Heart Rate 108 H 110 H 76 Respiratory 18 18 16 Rate Blood Pressure 143/86 H 140/79 H O2 Saturation 97 96 98 12/18/23 06:25 Temperature Heart Rate 72 Respiratory 16 Rate Blood Pressure 128/78 O2 Saturation 97 Oxygen O2 Source Room air - EKG (time done) 0259 EKG releavant findings:: EKG personally interpreted by author of this note. Relevant findings are: Rate: Rate (enter#) (99) Rhythm: NSR [place]: Normal Intervals: Normal RI QRS: LVH Ischemia: Normal ST segments Compare to prior EKG: Old EKG unavailable Computer interpretation: Agree with computer - Labs Labs: Laboratory Tests 12/18/23 12/18/23 12/18/23 03:00 03:00 05:38 WBC 11.8 H RBC 4.42 L Hgb 12.7 L Hct 38.8 L MCV 87.8 MCH 28.7 MCHC 32.7 RDW 14.9 Plt Count 190 MPV 9.6 Neut # (Auto) Not Reportable Lymph # (Auto) Not Reportable [place] # (Auto) Not Reportable Eos # (Auto) Not Reportable Baso # (Auto) Not Reportable Absolute Nucleated RBC Not Reportable Total Counted 100 Band Neuts % (Manual) 14 H Abnorm Lymph % (Manual) 0 Nucleated RBC % Not Reportable Neutrophils # (Manual) 8.0 H Lymphocytes # (Manual) 2.7 Monocytes # (Manual) 0.9 Eosinophils # (Manual) 0.1 Basophils # (Manual) 0.0 Differential Comment MANUAL DIFFERENTIAL Platelet Estimate NORMAL (130-450,000) RBC Morph Micro Appear NORMAL APPEARANCE Sodium 137 Potassium 3.6 Chloride 105 Carbon Dioxide 24 Anion Gap 8.0 BUN 18 Creatinine 0.9 Estimated GFR (MDRD) 88 L Glucose 122 H Calcium 9.5 Total Bilirubin 0.5 AST 21 ALT 35 Alkaline Phosphatase 90 Troponin I High Sens 9.5 8.4 Total Protein 6.2 L Albumin 3.7 Globulin 2.5 Albumin/Globulin Ratio 1.5 Lipase < 10 L PD Medical Decision Making - ED course Complexity details: reviewed results, re-evaluated patient, considered differential, d/w patient ED course: The patient was stable in the emergency department. He was chest pain-free by the time he arrived in the emergency department and had already been given aspirin by EMS. He was worked up with labs, EKG, and chest x-ray. Work-up, including 2 troponins, was negative. I have d/w pt that it is very important that he follow up with his PCP to discuss having a stress test done to close the loop on possible cardiac source of CP. He is prescribed nitroglycerin and we have discussed the usual indications for return. Departure - Departure Disposition: 01 Home, Self Care Clinical Impression: Chest pain Qualifiers: Chest pain type: unspecified Qualified Code(s): R07.9 - Chest pain, unspecified Condition: Stable Instructions: ED Chest Pain Atypical Unkn Cause Prescriptions: Nitroglycerin [Nitrostat] 0.4 mg SL Q5MIN PRN #25 tablet PRN Reason: Chest Pain Comments: Your EKG and labs look good, including repeat cardiac enzymes. You have not had a heart attack today. It is not clear for sure what is causing your chest pain. It could be that you have some more minor blockages in your Coronary arteries, the arteries that bring blood to the heart muscle itself. If you have blockages in these arteries that are not critical enough to cause a heart attack, they can sometimes cause angina, a chest pain that refers to the heart m uscle not getting quite enough blood flow. Nitroglycerin helps this condition by opening up the blood vessels to allow more flow in. Your symptoms could also be due to to spasm of your esophagus, and nitroglycerin will also help this by relaxing smooth muscle in the esophagus. You will need to follow-up with your primary doctor to have a stress test scheduled To close the loop on the possibility of cardiac chest pain. In the meantime, if you have further episodes of the pain, you may use the nitroglycerin as needed, according to directions. Please call to schedule the next possible follow-up appointment with your primary doctor. If you develop severe chest pain or pressure along with shortness of breath, nausea, and facial sweating, please return immediately. Your prescription for nitroglycerin has been electronically transmitted to the [facility] pharmacy in [place]. Forms: PCP List Discharge Date/Time: 12/18/23 06:25
[2023-12-18 03:06] LABS: BASOPHILS % (AUTO) 1.6 %; EOSINOPHILS % (AUTO) 0.7 %; HCT - HEMATOCRIT 38.8 % (42.0-52.0); HGB - HEMOGLOBIN 12.7 g/dL (14.0-18.0); LYMPHOCYTES % (AUTO) 16.5 %; MEAN CORPUSCULAR HEMOGLOBIN 28.7 pg (27.0-31.0); MEAN CORPUSCULAR HGB CONC 32.7 g/dL (32.0-36.0); MEAN CORPUSCULAR VOLUME 87.8 fL (80.0-94.0); MEAN PLATELET VOLUME 9.6 fL (7.4-11.4); MONOCYTES % (AUTO) 9.8 %; NEUTROPHILS % (AUTO) 69.5 %; PLT - PLATELET COUNT 190 10^3/uL (130-450); RED BLOOD COUNT 4.42 10^6/uL (4.70-6.10); RED CELL DISTRIBUTION WIDTH 14.9 % (12.0-15.0); WHITE BLOOD COUNT 11.8 x10^3/uL (4.8-10.8)
[2023-12-18] MEDS ORDERED: PROMETHAZINE 25 MG/1 ML VIAL ONE (03:07)
[2023-12-18] MEDS: PROMETHAZINE INJ 25 MG in SODIUM CHLORIDE 0.9% 50 ML IV STA (03:08)
[2023-12-18] MEDS: SODIUM CHLORIDE 0.9% 1,000 ML IV STA (03:08)
[2023-12-18 03:09] LABS: ABNORMAL LYMPHS % (MANUAL) 0 %
[2023-12-18 03:17] LABS: ALBUMIN 3.7 g/dL (3.2-5.5); ALBUMIN/GLOBULIN RATIO 1.5 (1.0-2.2); ALKALINE PHOSPHATASE 90 IU/L (42-121); ALT ALANINE AMINOTRANSFERASE 35 IU/L (10-60); AST ASPARTATE AMINOTRANSFERASE 21 IU/L (10-42); BILIRUBIN,TOTAL 0.5 mg/dL (0.2-1.0); BUN - BLOOD UREA NITROGEN 18 mg/dL (6-20); CALCIUM 9.5 mg/dL (8.5-10.3); CARBON DIOXIDE - CO2 24 mmol/L (21-32); CHLORIDE 105 mmol/L (101-111); CREATININE 0.9 mg/dL (0.6-1.3); GFR - MDRD 88 (>89); GLUCOSE 122 mg/dL (74-104); POTASSIUM 3.6 mmol/L (3.5-4.5); SODIUM 137 mmol/L (135-145); TOTAL PROTEIN 6.2 g/dL (6.4-8.9)
[2023-12-18 03:23] LABS: TROPONIN I HIGH SENSITIVITY 9.5 ng/L (2.3-19.7)
[2023-12-18 03:26] LABS: LIPASE < 10 U/L (11-82)
[2023-12-18 03:28] LABS: BAND NEUTROPHILS % (MANUAL) 14 %; DIFFERENTIAL COMMENT MANUAL DIFFERENTIAL; EOSINOPHILS # (MANUAL) 0.1 10^3/uL (0-0.7); LYMPHOCYTES # (MANUAL) 2.7 10^3/uL (1.5-3.5); LYMPHOCYTES % (MANUAL) 23 %; MONOCYTES # (MANUAL) 0.9 10^3/uL (0.0-1.0); PLATELET ESTIMATE, MANUAL NORMAL (130-450,000) (NORMAL); RBC MORPHOLOGY (MULTIPLE) NORMAL APPEARANCE (NORMAL)
[2023-12-18 06:25] VITALS: BP 128/78; O2SAT 97
== END 2023-12-18 06:25 | disposition home or self-care (01) ==
LOC: EDUNIT# → ED 02:50
DX: R07.9 Chest pain, unspecified (principal); I10 Essential (primary) hypertension; E11.9 Type 2 diabetes mellitus without complications; Z79.82 Long term (current) use of aspirin; Z79.899 Other long term (current) drug therapy; Z79.01 Long term (current) use of anticoagulants; Z79.84 Long term (current) use of oral hypoglycemic drugs
CPT/HCPCS: 36415; 80053; 83690; 84484; 85025; 93005; 96365; 99284; J7040

== ENCOUNTER 2024-01-24 17:15 | Outpatient (CLI) | payer OTHER ==
[2024-01-24] MEDS ORDERED: DIATRIZOATE MEGLU/DIATRIZO SOD 30 ML BOTTLE PO ONE (17:18)
[2024-01-24] MEDS ORDERED: iohexoL-300 100 ML VIAL ONE (17:18)
[2024-01-24] MEDS: iohexoL-300 100 ML VIAL IVP ONE (18:42)
[2024-01-24] MEDS: DIATRIZOATE MEGLU/DIATRIZO SOD 30 ML BOTTLE PO ONE (18:43)
--- NOTE | 2024-01-25 09:40 | CT Report ---
PROCEDURE: Chest W INDICATIONS: NEOPLASM OF PANCREAS CONTRAST: 100ml [id number] TECHNIQUE: After the administration of intravenous contrast, a CT scan of the chest was performed. Images were recorded and evaluated at appropriate window settings. Reformats: axial MIP of the chest, coronal and sagittal. For radiation dose reduction, the following was used: automated exposure control, adjustme nt of mA and/or kV according to patient size. COMPARISON: CT chest 11/09/2023. FINDINGS: Image quality: Diagnostic. Chest wall and lower neck: No thyroid nodule which requires sonographic follow up. A few subcentimete r nodules. No axillary or supraclavicular adenopathy by size. Right-sided port with the catheter tip at the cavoatrial junction. Lungs and pleura: No consolidation. No pleural effusions. No pneumothorax. Right middle lobe juxta fi ssural pulmonary nodule measuring 0.3 cm, (503/53), unchanged. Left lower lobe juxta fissural pulmona ry nodule measuring 0.3 cm, (503/75), unchanged. This could represent an intrapulmonary lymph node. Mediastinum: Post median sternotomy. Aortic valve replacement. Heart size is normal. No pericardial e ffusion. No large vessel abnormality. No obvious central pulmonary embolism. No mediastinal adenopath y by size criteria. Bones: No aggressive osseous abnormality. Upper Abdomen: Subxiphoid fat-containing hernia. Small nodule right lower paramedian subcutaneous ally suring 1.2 cm, (502/105), unchanged. Please see separate dictated same day CT abdomen pelvis. IMPRESSION: 1. No metastatic disease identified in the chest. 2. No new or enlarging pulmonary nodules. A few small pulmonary nodules measuring 0.3 cm or less. The se could represent benign intrapulmonary lymph nodes. 3. No acute airspace opacity. Reviewed by: Celestine Conner MD on 01/25/2024 9:39 AM PDT Approved by: Celestine Conner MD on 01/25/2024 9:39 AM PDT Station ID: [id number]
--- NOTE | 2024-01-25 11:23 | CT Report ---
PROCEDURE: Abdomen/Pelvis W INDICATIONS: NEOPLASM OF PANCREAS CONTRAST: 100ml [id number] TECHNIQUE: After the administration of intravenous contrast, a CT scan of the abdomen and pelvis was performed. Images were recorded and evaluated at appropriate window settings. Reformats: coronal and sagittal. F or radiation dose reduction, the following was used: automated exposure control, adjustment of mA and /or kV according to patient size. COMPARISON: Same-day CT chest. CT abdomen pelvis 11/09/2023, 09/11/2023. FINDINGS: Image quality: Diagnostic. Lower chest: No pleural effusion. Aortic valve replacement. Post median sternotomy. Liver: Multiple hypodense hepatic lesions are faintly visualized. For example: -Right dome 1.7 cm, (13/21). -Lower right liver 1.6 cm (13/56). -Left lobe 1.4 cm, (13/31). Background hepatic steatosis. Gallbladder and biliary tree: Surgically absent. No biliary dilation, accounting for post-cholecystec jessy state. Spleen: No splenomegaly. Pancreas: Mass in the body the pancreas measuring 5.8 x 2.9 cm (13/43), previously remeasured 6.1 x 2 .9 cm, and more remotely 4.7 x 2.7 cm on 09/11/2023. Fatty replacement pancreas. No pancreatic ductal dilatation is appreciated. There is encasement of th e splenic artery. The splenic vein is occluded or severely attenuated. Multiple upper abdominal varic es. There is encasement of the splenic vein. No peripancreatic fluid collection. Adrenals: Suspect small left adrenal nodule measuring 1 cm, (13/36), unchanged. Kidneys and ureters: No hydronephrosis. Small nonobstructing kidney stones. No renal cystic lesion wh ich requires follow up. No solid mass. Stomach, bowel and peritoneum: No bowel distension. No pathologic free fluid. Diverticulosis. Appendi x is absent. Lymph nodes: No central or retroperitoneal adenopathy. Vessels: No infrarenal aortic aneurysm. PELVIS Reproductive organs: Unremarkable. Bladder: No abnormal wall thickening, accounting for underdistention. Pelvic lymph nodes: No pelvic adenopathy by size criteria. Bones: No aggressive osseous abnormality. Multilevel DDD. Other: Fat-containing hernia suspected. Subxiphoid. Small subcutaneous nodule at the right upper abdo men is unchanged. Small fat-containing umbilical hernia. IMPRESSION: 1. Mass in the body the pancreas measuring 5.8 cm is not significantly changed in size. However, this is increased compared to August 2023. Vascular encasement. 2. Multiple new hepatic metastases are faintly visualized. 3. No ascites. No adenopathy. 4. Small kidney stones. Reviewed by: Celestine Conner MD on 01/25/2024 11:21 AM PDT Approved by: Celestine Conner MD on 01/25/2024 11:21 AM PDT Station ID: [id number]
== END 2024-01-24 17:16 | disposition home or self-care (01) ==
LOC: DI 17:15
PROVIDERS: ATTEND Internal Medicine
DX: C25.1 Malignant neoplasm of body of pancreas (principal); C78.7 Secondary malignant neoplasm of liver and intrahepatic bile duct; R91.8 Other nonspecific abnormal finding of lung field; N20.0 Calculus of kidney
CPT/HCPCS: 71260; 74177; Q9963; Q9967

== ENCOUNTER 2024-03-15 08:00 | Outpatient (CLI) | payer OTHER | END 2024-03-15 23:59 | disposition home or self-care (01) | LOC: LAB.S 08:00 | PROVIDERS: ATTEND Registered Nurse | DX: R31.9 Hematuria, unspecified (principal) | CPT/HCPCS: 87086 ==

== ENCOUNTER 2024-04-07 16:51 | Outpatient (CLI) | payer OTHER ==
[2024-04-07] MEDS: DIATRIZOATE MEGLU/DIATRIZO SOD 30 ML BOTTLE PO ONE (18:12)
[2024-04-07] MEDS: iohexoL-300 100 ML VIAL IV ONE (18:12)
--- NOTE | 2024-04-08 15:28 | CT Report ---
PROCEDURE: Abdomen/Pelvis W INDICATIONS: PANCREAS CA CONTRAST: 100ML OMNI TECHNIQUE: After the administration of intravenous contrast, a CT scan of the abdomen and pelvis was performed. Images were recorded and evaluated at appropriate window settings. Reformats: coronal and sagittal. F or radiation dose reduction, the following was used: automated exposure control, adjustment of mA and /or kV according to patient size. COMPARISON: CT abdomen and pelvis 01/24/2024, 09/11/2023. FINDINGS: Image quality: Diagnostic. Lower chest: Left major fissure pulmonary nodule measuring 0.3 cm, (8/12). Post median sternotomy. Ao rtic valve replacement. Liver: Numerous hypodense foci throughout the liver. For example: -Right dome 1.4 cm, (2/23), previously 1.7 cm. -Lower right liver 0.8 cm, (2/52), previously 1.6 cm. -Left lobe 1.3 cm, (2/36), previously 1.4 cm. Gallbladder: Absent. Biliary tree: No dilatation. Spleen: Measures 15.2 cm, mildly enlarged. Pancreas: Mass in the body of the pancreas measuring 5.5 x 2.5 cm, (2/44), previously measured at 5.6 x 2.9 cm. Slightly decreased in size. Encasement of the splenic artery. Splenic vein is occluded or severely attenuated. No pancreatic ductal dilatation. Adrenals: No adrenal nodule. Kidneys and ureters: No hydronephrosis. Small nonobstructing kidney stones bilaterally. No renal cyst ic lesion which requires follow up. No solid mass. Stomach, bowel and peritoneum: No gastric or small bowel dilation. No abnormal wall thickening. The a ppendix is absent. No pathologic free fluid. Lymph nodes: No central or retroperitoneal adenopathy. Vessels: No infrarenal aortic aneurysm. Patent portal vein. Multiple upper abdominal varices are agai n seen. PELVIS Reproductive organs: Unremarkable. Bladder: No abnormal wall thickening, accounting for underdistention. Pelvic lymph nodes: No pelvic adenopathy by size criteria. Bones: No aggressive osseous abnormality. Other: No significant ventral or inguinal hernia. IMPRESSION: 1. Mass in the body the pancreas measuring 5.5 cm is stable to slightly decreased in size. 2. Hepatic lesions are slightly decreased in size. 3. Upper abdominal varices. Splenomegaly. No ascites. Reviewed by: Celestine Conner MD on 04/08/2024 3:27 PM PDT Approved by: Celestine Conner MD on 04/08/2024 3:27 PM PDT Station ID: [id number]
--- NOTE | 2024-04-08 15:34 | CT Report ---
PROCEDURE: Chest W INDICATIONS: PANCREAS CA CONTRAST: 100ML OMNI TECHNIQUE: After the administration of intravenous contrast, a CT scan of the chest was performed. Images were recorded and evaluated at appropriate window settings. Reformats: axial MIP of the chest, coronal and sagittal. For radiation dose reduction, the following was used: automated exposure control, adjustme nt of mA and/or kV according to patient size. COMPARISON: CT chest 01/24/2024. FINDINGS: Image quality: Diagnostic. Chest wall and lower neck: Post median sternotomy. Right-sided port with the catheter tip at the cavo atrial junction. No thyroid nodule which requires sonographic follow up. No axillary or supraclavicul ar adenopathy by size. Lungs and pleura: No consolidation. No pleural effusions. No pneumothorax. Several small pulmonary no dules measuring 0.4 cm or less. For example: Right minor juxta fissural measuring 0.3 cm, (4/56), unchanged. Left juxta fissural 0.3 cm, (4/79), unchanged. Mediastinum: Heart size is normal. No pericardial effusion. No large vessel abnormality. No mediastin al adenopathy by size criteria. Bones: No aggressive osseous abnormality. Upper Abdomen: Please see separate dictated same-day CT abdomen pelvis. IMPRESSION: No metastatic disease identified in the chest. No new or enlarging pulmonary nodules. Reviewed by: Celestine Conner MD on 04/08/2024 3:32 PM PDT Approved by: Celestine Conner MD on 04/08/2024 3:32 PM PDT Station ID: [id number]
== END 2024-04-07 16:52 | disposition home or self-care (01) ==
LOC: LAB 16:51
PROVIDERS: ATTEND Internal Medicine
DX: C25.1 Malignant neoplasm of body of pancreas (principal); R93.2 Abnormal findings on diagnostic imaging of liver and biliary tract; I86.8 Varicose veins of other specified sites; R16.1 Splenomegaly, not elsewhere classified

== ENCOUNTER 2024-05-01 15:24 | Emergency (ER) | payer OTHER ==
--- NOTE | 2024-05-01 15:47 | ED Physician Documentation ---
PD HPI ABD PAIN - Stated complaint Stated Complaint: GI - Chief complaint Chief Complaint: Abd Pain - History obtained from History obtained from: Patient - Additional information Additional information: 53-year-old gentleman with history of aortic valve replacement done at [facility] on warfarin for same and also pancreatic cancer on chemotherapy developed dark and tarry stools since last night. He checks his INR at home and it was 2.9 this morning. No history of GI bleeding. No abdominal pain. PD PAST MEDICAL HISTORY - Past Medical History Past Medical History: Yes Cardiovascular: Hypertension, Angina, Arrhythmia, Valve disorder Respiratory: Pneumonia, Sleep apnea Neuro: None Endocrine/Autoimmune: Type 2 diabetes GI: None : Kidney stones HEENT: None Psych: None Musculoskeletal: None Derm: Eczema - Past Surgical History Past Surgical History: Yes General: Cholecystectomy, Appendectomy, Hiatal hernia repair /[employer]: Other (Kidney 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) Cardiovascular: Valve replacement, Other - Present Medications Home Medications: Ambulatory Orders Medication Instructions Recorded Confirmed Aspirin [Aspir 81] 81 mg PO DAILY 09/06/14 05/01/24 Metoprolol Tartrate 25 mg PO DAILY 09/06/14 05/01/24 Warfarin Sodium [Coumadin] 7.5 mg PO DAILY 09/06/14 05/01/24 Warfarin Sodium [Coumadin] 10 mg PO DAILY 09/06/14 05/01/24 lisinopriL [Lisinopril] 40 mg PO DAILY 09/06/14 05/01/24 Metformin HCl 500 mg PO BID 03/25/17 05/01/24 amLODIPine [Norvasc] 5 mg PO DAILY 03/26/19 05/01/24 LORazepam [Ativan] 1 mg PO BID PRN #12 tablet 11/29/23 05/01/24 Ondansetron Odt [Zofran Odt] 8 mg PO PRN PRN 11/29/23 05/01/24 oxyCODONE [Roxicodone] 5 mg PO PRN PRN 11/29/23 05/01/24 Nitroglycerin [Nitrostat] 0.4 mg SL Q5MIN PRN #25 tablet 12/18/23 05/01/24 Loratadine [Claritin] 10 mg PO DAILY 05/01/24 05/01/24 - Allergies Allergies/Adverse Reactions: Allergies Allergy/AdvReac Type Severity Reaction Status Date / Time morphine Allergy Unknown Verified 08/01/24 15:54 prochlorperazine Allergy Anxiety Verified 05/01/24 15:31 [From Compazine] - Social History Does the pt smoke?: No Smoking Status: Never smoker Does the pt drink ETOH?: Yes Does the pt have substance abuse?: No - Immunizations Immunizations are current?: Yes - POLST Patient has POLST: No PD ED PE NORMAL - Vitals Vital signs reviewed: Yes - General General: Alert and oriented X 3, No acute distress - Cardiac Cardiac: RRR - Respiratory Respiratory: No respiratory distress, Clear bilaterally - Abdomen Abdomen: Soft, Non tender - Rectal Rectal: Other (Dark stool in the vault, guaiac positive) - Neuro Neuro: Alert and oriented X 3 Results - Vitals Vitals: Vital Signs - 24 hr 05/01/24 05/01/24 05/01/24 15:31 17:35 19:00 Temperature 36.8 C Heart Rate 82 72 72 Heart Rate [ Radial] Respiratory 16 11 L 16 Rate Blood Pressure 159/96 H 137/94 H 143/94 H Blood Pressure [Right Brachial artery] O2 Saturation 98 100 98 05/01/24 05/01/24 05/01/24 19:02 19:12 21:00 Temperature 36.8 C 36.8 C Heart Rate 63 Heart Rate [ 71 72 Radial] Respiratory 18 20 16 Rate Blood Pressure 133/85 H Blood Pressure 143/94 H 149/94 H [Right Brachial artery] O2 Saturation 100 98 97 05/01/24 05/01/24 05/01/24 21:33 21:49 21:54 Temperature 36.5 C 36.5 C 36.5 C Heart Rate Heart Rate [ 65 64 64 Radial] Respiratory 16 17 18 Rate Blood Pressure Blood Pressure 133/85 H 172/87 H 158/93 H [Right Brachial artery] O2 Saturation 05/01/24 22:47 Temperature Heart Rate 64 Heart Rate [ Radial] Respiratory 14 Rate Blood Pressure 131/84 H Blood Pressure [Right Brachial artery] O2 Saturation 100 Oxygen O2 Source Room air - Labs Labs: Microbiology 05/01/24 15:45 Occult Blood - Final Stool Laboratory Tests 05/01/24 05/01/24 05/01/24 15:46 15:46 15:46 WBC 2.6 L RBC 3.37 L Hgb 10.3 L Hct 33.1 L MCV 98.2 H MCH 30.6 MCHC 31.1 L RDW 16.5 H Plt Count 132 MPV 9.8 Neut # (Auto) 1.6 Lymph # (Auto) 0.7 L Harris # (Auto) 0.1 Eos # (Auto) 0.1 Baso # (Auto) 0.0 Absolute Nucleated RBC 0.00 Band Neuts % (Manual) Not Reportable Abnorm Lymph % (Manual) Not Reportable Nucleated RBC % 0.0 Neutrophils # (Manual) Not Reportable Lymphocytes # (Manual) Not Reportable Monocytes # (Manual) Not Reportable Eosinophils # (Manual) Not Reportable Basophils # (Manual) Not Reportable Differential Comment MANUAL=AUTO DIFF WBC Morphology CLEFTED LYMPHS NOTED Platelet Estimate NORMAL (130-450,000) Platelet Morphology NORMAL APPEARANCE RBC Morph Micro Appear 1+ MICROCYTOSIS PT 33.2 H INR 3.3 H Sodium Potassium Chloride Carbon Dioxide Anion Gap BUN Creatinine Estimated GFR (MDRD) Glucose Calcium Total Bilirubin AST ALT Alkaline Phosphatase Total Protein Albumin Globulin Albumin/Globulin Ratio Lipase Blood Type O POSITIVE Blood Type Recheck Antibody Screen NEGATIVE 05/01/24 05/01/24 05/01/24 15:46 16:56 17:47 WBC RBC Hgb 9.5 L Hct 29.8 L MCV MCH MCHC RDW Plt Count MPV Neut # (Auto) Lymph # (Auto) Harris # (Auto) Eos # (Auto) Baso # (Auto) Absolute Nucleated RBC Band Neuts % (Manual) Abnorm Lymph % (Manual) Nucleated RBC % Neutrophils # (Manual) Lymphocytes # (Manual) Monocytes # (Manual) Eosinophils # (Manual) Basophils # (Manual) Differential Comment WBC Morphology Platelet Estimate Platelet Morphology RBC Morph Micro Appear PT INR Sodium 139 Potassium 3.8 Chloride 105 Carbon Dioxide 27 Anion Gap 7.0 BUN 24 H Creatinine 0.9 Estimated GFR (MDRD) 88 L Glucose 114 H Calcium 9.4 Total Bilirubin 0.4 AST 34 ALT 40 Alkaline Phosphatase 64 Total Protein 6.3 L Albumin 3.7 Globulin 2.6 Albumin/Globulin Ratio 1.4 Lipase 12 Blood Type Blood Type Recheck O POSITIVE Antibody Screen 05/01/24 05/01/24 05/01/24 19:33 19:33 22:21 WBC RBC Hgb 9.1 L 8.9 L Hct 29.4 L 28.0 L MCV MCH MCHC RDW Plt Count MPV Neut # (Auto) Lymph # (Auto) Harris # (Auto) Eos # (Auto) Baso # (Auto) Absolute Nucleated RBC Band Neuts % (Manual) Abnorm Lymph % (Manual) Nucleated RBC % Neutrophils # (Manual) Lymphocytes # (Manual) Monocytes # (Manual) Eosinophils # (Manual) Basophils # (Manual) Differential Comment WBC Morphology Platelet Estimate Platelet Morphology RBC Morph Micro Appear PT 28.3 H INR 2.7 H Sodium Potassium Chloride Carbon Dioxide Anion Gap BUN Creatinine Estimated GFR (MDRD) Glucose Calcium Total Bilirubin AST ALT Alkaline Phosphatase Total Protein Albumin Globulin Albumin/Globulin Ratio Lipase Blood Type Blood Type Recheck Antibody Screen 05/01/24 22:21 WBC RBC Hgb Hct MCV MCH MCHC RDW Plt Count MPV Neut # (Auto) Lymph # (Auto) Harris # (Auto) Eos # (Auto) Baso # (Auto) Absolute Nucleated RBC Band Neuts % (Manual) Abnorm Lymph % (Manual) Nucleated RBC % Neutrophils # (Manual) Lymphocytes # (Manual) Monocytes # (Manual) Eosinophils # (Manual) Basophils # (Manual) Differential Comment WBC Morphology Platelet Estimate Platelet Morphology RBC Morph Micro Appear PT 25.7 H INR 2.5 H Sodium Potassium Chloride Carbon Dioxide Anion Gap BUN Creatinine Estimated GFR (MDRD) Glucose Calcium Total Bilirubin AST ALT Alkaline Phosphatase Total Protein Albumin Globulin Albumin/Globulin Ratio Lipase Blood Type Blood Type Recheck Antibody Screen PD Medical Decision Making - ED course ED course: 53-year-old gentleman on warfarin anticoagulation for history of aortic valve presents with melena. He has ongoing chemotherapy for pancreatic cancer. He is guaiac positive. He is hemodynamically stable. CBC demonstrates hemoglobin of 10.3, most recent available in our system few months ago was 12.7. Protonix was ordered and I did reach out to our hospitalist team, Dr. Walker to query as to the appropriateness for admission here but given his comorbidities, the inability to consult cardiology and the likely need to continue anticoagulation despite active bleeding, she recommended transfer to higher level of care specifically somewhere with cardiology and GI and likely heme-onc as well. I spoke with Dr. Greta Franco, [facility] Pro doctor at [facility] who is looking for a bed for him. She did discuss with both GI and cardiology and in her discussions ascertained if there was evidence of active bleeding he could be reversed from the standpoint of his INR and anticoagulation. Subsequently his second hemoglobin represented about a 1 point/unit drop compared to his first and as noted above I did order a unit of FFP. No vitamin K as that would delay any reinstitution of anticoagulation. He is having more upper abdominal pain and I ordered some Dilaudid and IV acetaminophen. We will recheck his INR and H&H now that the FFP is done, note AT 7:26 PM. 7:57 PM: He wondered if he could take his white cell boosting shot for his chemo and I do not see any reason why he cannot. His INR has come down from 3.3 down to 2.7 so I will order 1 more unit of FFP. The drop in his hemoglobin from 9.5 down to 9.1 is less significant than the prior drop. Excepted to Benita Jones at 811 PM and cobras are completed. - Critical Care Time(min): 42 Time Includes: Direct patient care, Review records, Reassess patient, Document care, Coordinate care, Medical consult, Family consult for tx dec Data interpretation: Labs, Pulse ox Procedures included in critical care time: Peripheral IV Departure - Departure Disposition: 02 Transfer Acute Care Hosp Clinical Impression: H/O aortic valve replacement, Upper GI bleed, On antineoplastic chemotherapy Pancreatic cancer Qualifiers: Pancreatic malignancy location: unspecified Qualified Code(s): C25.9 - Malignant neoplasm of pancreas, unspecified Condition: Serious Forms: PCP List Discharge Date/Time: 05/01/24 22:56
[2024-05-01 15:53] LABS: BASOPHILS % (AUTO) 0.8 %; EOSINOPHILS # (AUTO) 0.1 10^3/uL (0.0-0.7); EOSINOPHILS % (AUTO) 2.7 %; HCT - HEMATOCRIT 33.1 % (42.0-52.0); HGB - HEMOGLOBIN 10.3 g/dL (14.0-18.0); LYMPHOCYTES # (AUTO) 0.7 10^3/uL (1.5-3.5); LYMPHOCYTES % (AUTO) 28.6 %; MEAN CORPUSCULAR HEMOGLOBIN 30.6 pg (27.0-31.0); MEAN CORPUSCULAR HGB CONC 31.1 g/dL (32.0-36.0); MEAN CORPUSCULAR VOLUME 98.2 fL (80.0-94.0); MEAN PLATELET VOLUME 9.8 fL (7.4-11.4); MONOCYTES # (AUTO) 0.1 10^3/uL (0.0-1.0); MONOCYTES % (AUTO) 4.3 %; NEUTROPHILS # (AUTO) 1.6 10^3/uL (1.5-6.6); NEUTROPHILS % (AUTO) 63.2 %; PLT - PLATELET COUNT 132 10^3/uL (130-450); RED BLOOD COUNT 3.37 10^6/uL (4.70-6.10); RED CELL DISTRIBUTION WIDTH 16.5 % (12.0-15.0); WHITE BLOOD COUNT 2.6 x10^3/uL (4.8-10.8)
[2024-05-01 16:02] LABS: INR 3.3 (0.8-1.2); PT - PROTHROMBIN TIME 33.2 secs (9.9-12.6)
[2024-05-01 16:15] LABS: ALBUMIN 3.7 g/dL (3.2-5.5); ALBUMIN/GLOBULIN RATIO 1.4 (1.0-2.2); BILIRUBIN,TOTAL 0.4 mg/dL (0.2-1.0); CALCIUM 9.4 mg/dL (8.5-10.3); CREATININE 0.9 mg/dL (0.6-1.3); POTASSIUM 3.8 mmol/L (3.5-4.5); TOTAL PROTEIN 6.3 g/dL (6.4-8.9)
[2024-05-01 16:20] LABS: PLATELET ESTIMATE, MANUAL NORMAL (130-450,000) (NORMAL); PLATELET MORPHOLOGY NORMAL APPEARANCE (NORMAL)
[2024-05-01 16:21] LABS: DIFFERENTIAL COMMENT MANUAL=AUTO DIFF; WBC MORPHOLOGY (MULTIPLE) CLEFTED LYMPHS NOTED (NORMAL)
[2024-05-01] MEDS: PANTOPRAZOLE 40 MG VIAL IVP STA (16:38)
[2024-05-01] MEDS ORDERED: ACETAMINOPHEN 500 MG TABLET PO PRN (17:40)
[2024-05-01] MEDS ORDERED: ONDANSETRON 4 MG/2 ML VIAL IVP PRN (17:40)
[2024-05-01 18:00] LABS: HCT - HEMATOCRIT 29.8 % (42.0-52.0); HGB - HEMOGLOBIN 9.5 g/dL (14.0-18.0)
[2024-05-01 19:36] LABS: HCT - HEMATOCRIT 29.4 % (42.0-52.0); HGB - HEMOGLOBIN 9.1 g/dL (14.0-18.0)
[2024-05-01 19:45] LABS: INR 2.7 (0.8-1.2); PT - PROTHROMBIN TIME 28.3 secs (9.9-12.6)
[2024-05-01] MEDS: HYDROmorphone 1 MG/ML CARPUJECT IVP STA ×2 (19:47→21:59)
[2024-05-01] MEDS: metFORMIN 500 MG TABLET PO SCH (20:04)
[2024-05-01] MEDS: ACETAMINOPHEN 1,000 MG/100 ML 1,000 MG/100 ML BAG IV ONE (20:44)
[2024-05-01 22:41] LABS: HGB - HEMOGLOBIN 8.9 g/dL (14.0-18.0)
[2024-05-01 22:54] VITALS: BP 131/84; O2SAT 100
[2024-05-01 22:54] LABS: INR 2.5 (0.8-1.2); PT - PROTHROMBIN TIME 25.7 secs (9.9-12.6)
== END 2024-05-01 22:56 | disposition short-term general hospital (02) ==
LOC: ED 15:24
DX: K92.2 Gastrointestinal hemorrhage, unspecified (principal); C25.9 Malignant neoplasm of pancreas, unspecified; I10 Essential (primary) hypertension; E11.9 Type 2 diabetes mellitus without complications; Z95.2 Presence of prosthetic heart valve; Z79.01 Long term (current) use of anticoagulants; Z79.60 Long term (current) use of unspecified immunomodulators and immunosuppressants; Z79.82 Long term (current) use of aspirin; Z79.84 Long term (current) use of oral hypoglycemic drugs; Z79.899 Other long term (current) drug therapy
CPT/HCPCS: 36415; 36430; 80053; 82272; 83690; 85014; 85018; 85025; 85610; 86850; 86900; 86901; 96374; 96375; 96376; 99291; J0131; J1170; P9017

== ENCOUNTER 2024-05-20 00:32 | Outpatient (CLI) | payer OTHER | END 2024-05-20 23:24 | disposition critical access hospital (66) | LOC: EMS 00:32 | DX: R07.9 Chest pain, unspecified (principal); Z79.01 Long term (current) use of anticoagulants; Z95.2 Presence of prosthetic heart valve | CPT/HCPCS: A0425; A0429 ==

== ENCOUNTER 2024-05-20 01:08 | Emergency (ER) | payer OTHER ==
--- NOTE | 2024-05-20 01:05 | ED Physician Documentation ---
PD HPI CHEST PAIN - Stated complaint Stated Complaint: CHEST PX - History obtained from History obtained from: Patient, EMS - Additional information Additional information: BIBA. HPI from patient, EMS. Patient complains of chest pain while at home at rest tonight, onset approximately 8 PM. Patient is midline and bilaterally parasternal, occasionally radiates across the entire chest as well as to his back. The pain waxes and wanes without exacerbating factors although the pain improves (sometimes temporarily resolving) with ambulation. There is no pleuritic component. He denies history of similar symptoms. Denies dyspnea, denies nausea/vomiting, denies diaphoresis. BLE edema is chronic and has been worse than it currently is. Patient refused ASA by EMS en route; patient says this is because he is already taking warfarin. Patient's past medical history includes mechanical aortic valve replacement (2012), for which he takes warfarin. Past medical history also includes diabetes, pancreatic cancer (for which he still is undergoing chemotherapy on an [id number] basis). Aside from the AVR, no other past cardiac history. He says he has had several stress tests without concerning results, although last stress test was approximately 10 years ago PD PAST MEDICAL HISTORY - Past Medical History Past Medical History: Yes Cardiovascular: Valve disorder Other Past Medical History: pancreatic CA - Past Surgical History General: Cholecystectomy, Appendectomy Cardiovascular: Valve replacement - Present Medications Home Medications: Ambulatory Orders Medication Instructions Recorded Confirmed Aspirin [Aspir 81] 81 mg PO DAILY 09/06/14 05/01/24 Metoprolol Tartrate 25 mg PO DAILY 09/06/14 05/01/24 Warfarin Sodium [Coumadin] 7.5 mg PO DAILY 09/06/14 05/01/24 Warfarin Sodium [Coumadin] 10 mg PO DAILY 09/06/14 05/01/24 lisinopriL [Lisinopril] 40 mg PO DAILY 09/06/14 05/01/24 Metformin HCl 500 mg PO BID 03/25/17 05/01/24 amLODIPine [Norvasc] 5 mg PO DAILY 03/26/19 05/01/24 LORazepam [Ativan] 1 mg PO BID PRN #12 tablet 11/29/23 05/01/24 Ondansetron Odt [Zofran Odt] 8 mg PO PRN PRN 11/29/23 05/01/24 oxyCODONE [Roxicodone] 5 mg PO PRN PRN 11/29/23 05/01/24 Nitroglycerin [Nitrostat] 0.4 mg SL Q5MIN PRN #25 tablet 12/18/23 05/01/24 Loratadine [Claritin] 10 mg PO DAILY 05/01/24 05/01/24 - Allergies Allergies/Adverse Reactions: Allergies Allergy/AdvReac Type Severity Reaction Status Date / Time morphine Allergy Unknown Verified 05/20/24 01:25 prochlorperazine Allergy Anxiety Verified 05/20/24 01:25 [From Compazine] PD ED PE NORMAL - Vitals Vital signs reviewed: Yes - General General: Alert and oriented X 3, No acute distress, Well developed/nourished - Cardiac Cardiac: RRR - Respiratory Respiratory: No respiratory distress, Clear bilaterally - Abdomen Abdomen: Soft, Non tender, Non distended - Derm Derm: Normal color, Warm and dry PD ED PE EXPANDED - Cardiac Cardiac: Murmur Present (crescendo (systolic) greatest at left 2nd ICS with click) - Extremities Extremities: Pedal edema bilateral Results - Vitals Vitals: Vital Signs - 24 hr 05/20/24 05/20/24 05/20/24 01:20 01:23 03:36 Temperature 37.6 C Heart Rate 79 78 71 Respiratory 18 20 Rate Blood Pressure 160/94 H 145/90 H O2 Saturation 97 98 Oxygen O2 Source Room air - EKG (time done) No standard instances EKG releavant findings:: EKG personally interpreted by author of this note. Relevant findings are: Rate: Rate (enter#) (82) Rhythm: NSR [place]: LAD Intervals: Normal OK, Other (early R-wave transition) QRS: LVH Ischemia: Normal ST segments - Labs Labs: Microbiology 05/20/24 03:18 Occult Blood - Final Stool Laboratory Tests 05/20/24 05/20/24 05/20/24 01:17 01:17 01:17 WBC 6.7 RBC 2.75 L Hgb 8.4 L Hct 27.4 L MCV 99.6 H MCH 30.5 MCHC 30.7 L RDW 15.9 H Plt Count 78 L MPV 11.5 H Neut # (Auto) Not Reportable Lymph # (Auto) Not Reportable [place] # (Auto) Not Reportable Eos # (Auto) Not Reportable Baso # (Auto) Not Reportable Absolute Nucleated RBC Not Reportable Total Counted 100 Band Neuts % (Manual) 6 Abnorm Lymph % (Manual) 0 Metamyelocytes % 1 H Nucleated RBC % Not Reportable Neutrophils # (Manual) 5.0 Lymphocytes # (Manual) 1.0 L Monocytes # (Manual) 0.3 Eosinophils # (Manual) 0.3 Basophils # (Manual) 0.0 Differential Comment MANUAL DIFFERENTIAL WBC Morphology 2+ DOHLE BODIES Platelet Estimate DECREASED (<130,000) Platelet Morphology NORMAL APPEARANCE RBC Morph Micro Appear NORMAL APPEARANCE PT INR Sodium 139 Potassium 3.9 Chloride 106 Carbon Dioxide 26 Anion Gap 7.0 BUN 17 Creatinine 1.2 Estimated GFR (MDRD) 63 L Glucose 146 H Calcium 9.1 Total Bilirubin 0.4 AST 21 ALT 23 Alkaline Phosphatase 92 Troponin I High Sens 8.8 Total Protein 6.4 Albumin 3.7 Globulin 2.7 Albumin/Globulin Ratio 1.4 Lipase < 10 L Urine Color Urine Clarity Urine pH Ur Specific [place] Urine Protein Urine Glucose (UA) Urine Ketones Urine Occult Blood Urine Nitrite Urine Bilirubin Urine Urobilinogen Ur Leukocyte Esterase Urine RBC Urine WBC Ur Squamous Epith Cells Urine Bacteria Ur Microscopic Review Urine Culture Comments 05/20/24 05/20/24 05/20/24 01:17 02:30 03:30 WBC RBC Hgb 8.6 L Hct 27.1 L MCV MCH MCHC RDW Plt Count MPV Neut # (Auto) Lymph # (Auto) [place] # (Auto) Eos # (Auto) Baso # (Auto) Absolute Nucleated RBC Total Counted Band Neuts % (Manual) Abnorm Lymph % (Manual) Metamyelocytes % Nucleated RBC % Neutrophils # (Manual) Lymphocytes # (Manual) Monocytes # (Manual) Eosinophils # (Manual) Basophils # (Manual) Differential Comment WBC Morphology Platelet Estimate Platelet Morphology RBC Morph Micro Appear PT 37.2 H INR 3.7 H Sodium Potassium Chloride Carbon Dioxide Anion Gap BUN Creatinine Estimated GFR (MDRD) Glucose Calcium Total Bilirubin AST ALT Alkaline Phosphatase Troponin I High Sens Total Protein Albumin Globulin Albumin/Globulin Ratio Lipase Urine Color YELLOW Urine Clarity CLEAR Urine pH 7.5 Ur Specific [place] 1.015 Urine Protein NEGATIVE Urine Glucose (UA) NEGATIVE Urine Ketones NEGATIVE Urine Occult Blood MODERATE H Urine Nitrite NEGATIVE Urine Bilirubin NEGATIVE Urine Urobilinogen 0.2 (NORMAL) Ur Leukocyte Esterase NEGATIVE Urine RBC 6-10 H Urine WBC 0-3 Ur Squamous Epith Cells RARE Squamous Urine Bacteria Rare Ur Microscopic Review INDICATED Urine Culture Comments NOT INDICATED - Rads (name of study) CTA chest Relevant Findings:: Prelim report reviewed, See rad report PD Medical Decision Making - ED course Complexity details: reviewed results, re-evaluated patient, considered differential, d/w patient ED course: No concerning findings on EKG and high-sensitivity troponin is normal (8.8). Normal ER abdominal panel with exceptions of GFR 63 and glucose 146 (neither of which is concerning nor contributory). White blood cell count is normal, but low hemoglobin (8.4) and platelets (78) noted. Using previous results in [employer] for comparative purposes, both of these are below patient's baseline. Patient tells me he has had hemoglobin as low as 8.1, but agrees 8.4 is below his baseline. He relates that when he was discharged from [facility] earlier this month (after being transferred from this emergency department), his hemoglobin was in the 9-10 range. Regarding his ED evaluation at the beginning of this month that resulted in the transfer to [facility], he had rapidly down-trending hemoglobin during his ED stay along with abdominal pain and dark black stool which was guaiac positive. He was given FFP in the emergency department, but, per patient, he did not receive nor require any PRBC transfusions. Patient tells me that he underwent upper endoscopy at [facility] and was found to have a bleeding duodenal ulcer and that lambert/clips were placed to achieve hemostasis. The patient tells me that the pain he is experiencing tonight does not feel at all similar to the discomfort he had associated with the ulcer. CT of the chest is undertaken and there are no concerning findings on the study from an emergency standpoint; specifically, no evidence of PE, aortic dissection or aneurysm. Radiologist makes note of "enlarged pulmonary trunk measuring 3.5 cm in width. Query pulmonary arterial hypertension." Incidental note is made of two nonspecific bilateral lung nodules measuring to 5mm; in discussing results w/ patient, he thinks he had already been told of the nodules and patient's also seems to recall he was told these were benign. A 2-hour repeat H&H demonstrates no significant change; the hemoglobin has increased from 8.4 to8.6, although the hematocrit has decreased from 27.4 to 27.1. Thus, H&H is stable. This, combined with the result of guaiac negative argues against GI bleeding. Patient is given 1 mg IV Dilaudid with adequate analgesia per patient report. I discussed nadine's test results with the patient. The etiology of his symptoms is not apparent at this time. He says he will pursue follow-up as soon as can be arranged for reevaluation in regards to his symptoms as well as the abnormal test results (particularly the thrombocytopenia and anemia). Return precautions were carefully reviewed. Shortly before being discharged, the patient is given a second dose of 1 mg IV Dilaudid. Departure - Departure Disposition: 01 Home, Self Care Clinical Impression: Chest pain Qualifiers: Chest pain type: unspecified Qualified Code(s): R07.9 - Chest pain, unspecified Anemia Qualifiers: Anemia type: unspecified type Qualified Code(s): D64.9 - Anemia, unspecified Condition: Good Instructions: Thrombocytopenia, ED Anemia Type Not Specified, ED Chest Pain Atypical Unkn Cause Comments: There were no findings on tonight's tests that indicate the cause of your chest pain. Incidental abnormalities include low red cell count (hemoglobin 8.4) low platelets (78). A recheck of your red blood cell level approximately 2 hours after the first level was drawn show no significant change, and there was no blood in the stool on lab testing of a stool sample. Your INR was 3.7. No concerning findings on nadine's CT scan of your chest. As we discussed, the radiologist notes questionable enlargement of your pulmonary arteries which could indicate a diagnosis of pulmonary hypertension; mention this finding to your primary care provider and further testing can be undertaken at their discretion. Thus, the cause of your chest pain is not apparent at this time. Follow-up with your primary care provider, next available appointment, for reevaluation. You should also discuss your symptoms and test results with your oncologist and your outdoor emergency care technician. Forms: PCP List Discharge Date/Time: 05/20/24 04:20
[2024-05-20] MEDS ORDERED: iohexoL-300 100 ML VIAL ONE (01:25)
[2024-05-20 01:27] LABS: BASOPHILS % (AUTO) 1.2 %; HCT - HEMATOCRIT 27.4 % (42.0-52.0); HGB - HEMOGLOBIN 8.4 g/dL (14.0-18.0); LYMPHOCYTES % (AUTO) 12.3 %; MEAN CORPUSCULAR HEMOGLOBIN 30.5 pg (27.0-31.0); MEAN CORPUSCULAR HGB CONC 30.7 g/dL (32.0-36.0); MEAN CORPUSCULAR VOLUME 99.6 fL (80.0-94.0); MEAN PLATELET VOLUME 11.5 fL (7.4-11.4); NEUTROPHILS % (AUTO) 74.1 %; PLT - PLATELET COUNT 78 10^3/uL (130-450); RED BLOOD COUNT 2.75 10^6/uL (4.70-6.10); RED CELL DISTRIBUTION WIDTH 15.9 % (12.0-15.0); WHITE BLOOD COUNT 6.7 x10^3/uL (4.8-10.8)
[2024-05-20 01:30] LABS: ABNORMAL LYMPHS % (MANUAL) 0 %
[2024-05-20 01:48] LABS: ALBUMIN 3.7 g/dL (3.2-5.5); ALBUMIN/GLOBULIN RATIO 1.4 (1.0-2.2); ALKALINE PHOSPHATASE 92 IU/L (42-121); ALT ALANINE AMINOTRANSFERASE 23 IU/L (10-60); AST ASPARTATE AMINOTRANSFERASE 21 IU/L (10-42); BILIRUBIN,TOTAL 0.4 mg/dL (0.2-1.0); BUN - BLOOD UREA NITROGEN 17 mg/dL (6-20); CALCIUM 9.1 mg/dL (8.5-10.3); CARBON DIOXIDE - CO2 26 mmol/L (21-32); CHLORIDE 106 mmol/L (101-111); CREATININE 1.2 mg/dL (0.6-1.3); GFR - MDRD 63 (>89); GLUCOSE 146 mg/dL (74-104); LIPASE < 10 U/L (11-82); POTASSIUM 3.9 mmol/L (3.5-4.5); SODIUM 139 mmol/L (135-145); TOTAL PROTEIN 6.4 g/dL (6.4-8.9)
[2024-05-20 01:54] LABS: BAND NEUTROPHILS % (MANUAL) 6 %; EOSINOPHILS # (MANUAL) 0.3 10^3/uL (0-0.7); LYMPHOCYTES % (MANUAL) 15 %; METAMYELOCYTES % (MANUAL) 1 %; MONOCYTES # (MANUAL) 0.3 10^3/uL (0.0-1.0)
[2024-05-20 01:57] LABS: PLATELET ESTIMATE, MANUAL DECREASED (<130,000) (NORMAL); PLATELET MORPHOLOGY NORMAL APPEARANCE (NORMAL); RBC MORPHOLOGY (MULTIPLE) NORMAL APPEARANCE (NORMAL)
[2024-05-20 01:58] LABS: DIFFERENTIAL COMMENT MANUAL DIFFERENTIAL; WBC MORPHOLOGY (MULTIPLE) 2+ DOHLE BODIES (NORMAL)
[2024-05-20] MEDS: iohexoL-300 100 ML VIAL IVP ONE (02:08)
[2024-05-20 02:14] LABS: INR 3.7 (0.8-1.2); PT - PROTHROMBIN TIME 37.2 secs (9.9-12.6)
[2024-05-20 02:45] LABS: BILIRUBIN,URINE NEGATIVE (NEGATIVE); GLUCOSE, URINE (UA) NEGATIVE (NEGATIVE); KETONES,URINE (UA) NEGATIVE (NEGATIVE); LEUKOCYTE ESTERASE, URINE NEGATIVE (NEGATIVE); NITRITE,URINE NEGATIVE (NEGATIVE); OCCULT BLOOD,URINE MODERATE (NEGATIVE); PH,URINE 7.5 PH (5.0-7.5); PROTEIN,URINE NEGATIVE (NEGATIVE); UROBILINOGEN,URINE 0.2 (NORMAL) E.U./dL (NORMAL)
[2024-05-20 02:55] LABS: CLARITY,URINE CLEAR (CLEAR)
[2024-05-20 02:56] LABS: BACTERIA,URINE Rare /HPF (None Seen); SQUAMOUS EPITHELIAL CELL,UR RARE Squamous (<= Few); WBC,URINE 0-3 /HPF (0-3)
[2024-05-20] MEDS: HYDROmorphone 1 MG/ML CARPUJECT IVP STA ×2 (02:57→04:12)
[2024-05-20 03:37] VITALS: BP 145/90; O2SAT 98
[2024-05-20 03:38] LABS: HCT - HEMATOCRIT 27.1 % (42.0-52.0); HGB - HEMOGLOBIN 8.6 g/dL (14.0-18.0)
--- NOTE | 2024-05-20 10:38 | CT Report ---
PROCEDURE: Angio Chest INDICATIONS: chest pain CONTRAST: Omni 300, 80ms TECHNIQUE: After the administration of intravenous contrast, 2 mm axial images were acquired from the pulmonary apices to the posterior costophrenic angles during the arterial phase. In addition, 1 mm lung kernel and 5 mm soft tissue kernel reconstructions were performed. 3-dimensional coronal oblique maximum int ensity projection (MIP) reformats, 8 mm axial MIP, and 5 mm coronal and sagittal MPR reformats were t hen performed through the thorax. For radiation dose reduction, the following was used: automated exp osure control, adjustment of mA and/or kV according to patient size. COMPARISON: Chest CT dated 04/07/2024. FINDINGS: Image quality: Excellent. Large vessels: No filling defects within the opacified pulmonary arteries, accounting for motion and contrast timing. No evidence of acute aortic syndrome or aortic aneurysm. Lungs and pleura: No consolidation. No pleural effusions. No pneumothorax. No suspicious pulmonary n odules which require follow up. Mediastinum: Heart size is normal. No pericardial effusion. 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 No large vessel abnormality. No mediastinal adenopathy by size criteria. Chest wall and lower neck: Thyroid is unremarkable. No axillary or supraclavicular adenopathy by size . Bones: No aggressive osseous abnormality. Upper Abdomen: Infiltrative mass involving the pancreatic body with lack of tissue plane between the mass and the SM A. This is incompletely imaged. IMPRESSION: 1. No evidence acute pulmonary emboli. 2. No acute pulmonary process. 3. No pulmonary metastatic disease. 4. Known pancreatic carcinoma. Reviewed by: Abel Trotter MD on 05/20/2024 10:37 AM PDT Approved by: Abel Trotter MD on 05/20/2024 10:37 AM PDT Station ID: [id number]
== END 2024-05-20 04:20 | disposition home or self-care (01) ==
LOC: EDUNIT# → ED 01:08
DX: R07.9 Chest pain, unspecified (principal); D64.9 Anemia, unspecified; D69.6 Thrombocytopenia, unspecified; R60.9 Edema, unspecified; R01.1 Cardiac murmur, unspecified; Z79.01 Long term (current) use of anticoagulants; Z95.2 Presence of prosthetic heart valve
CPT/HCPCS: 36415; 71275; 80053; 81001; 82272; 83690; 84484; 85014; 85018; 85025; 85610; 93005; 96374; 96376; 99284; 99285; J1170; Q9967; 81003; 87086